=== PATIENT | female | born 1930 | race Caucasian/White ===

== ENCOUNTER → 2016-06-01 | Outpatient (REF) | payer MEDICARE, MEDICAID ==
[~2016-06-01] MED LIST: /ADVA50050; /MOM400 OR; /ONDA4TA OR; /ROPI25TA; /ROPI25TA OR; /WARF25TA; /WARF2TA; /WARF4TA; /WARF4TA OR; ACET65TA; ADVAIR; ADVAIR INH; ALBU83IN; ALBU83IN IN; ALLERGY RELIEF OR; AMIT50TA2; AMIT50TA2 OR; BEANTAB2 OR; BISAC5TA OR; CALCCHW12; CALCCHW12 OR; COLA100C2; COLA100C2 OR; CRES20TA; CRES20TA OR; DEPA500T OR; DEXT5INJ2 IV; DEXTPOW57 XX; DIABETA PO; DIPH50CA PO; FLEC50TA2; FLEEENE4 PR; FLEXERIL OR; FURO40TA2; GLIP2.5T20 OR; GLIP2.5T6; GLIP5TAB2; GLUC1VL SC; GLUC4CHW PO; HALO1TA OR; JANUVIA PO; LASI40TA; LISI10TA4 OR; LISI20TA5; LISI5TAB PO; LOPE2CA OR; LOPR50TA; MED FOR RESTLESS LEG; METF500T PO; METO25TA2 OR; METOPROLOL; NASONEX; PRIL20CA; PRIL20CA OR; PROV90AE; SERT50TA2 OR; SING5CHW PO; THERGRAN; THERGRAN OR; TYLE325T5 PO; VICO5TAB; VICO5TAB OR; VITAMIN D50000 UNT; VOLT1GEL EX; WARF2TAB44 PO; [UNRECOGNIZED DRUG - OTHER] IV
[2016-06-01 12:29] LABS: INR 2.19
== END ==
LOC: SKLAB6 07:00
PROVIDERS: ATTEND Family Medicine
DX: Z51.81 Encounter for therapeutic drug level monitoring (principal); Z79.01 Long term (current) use of anticoagulants

== ENCOUNTER → 2016-06-08 | Outpatient (REF) | payer MEDICARE, MEDICAID ==
[2016-06-08 09:08] LABS: INR 2.21
[2016-06-08 09:37] LABS: CALCIUM LEVEL 9.5 MG/DL (8.8-10.2); CREATININE FOR GFR 0.97 MG/DL (0.55-1.02); POTASSIUM SERUM 4.1 MEQ/L (3.5-5.1)
== END ==
LOC: SKLAB6 07:00
PROVIDERS: ATTEND Family Medicine
DX: Z51.81 Encounter for therapeutic drug level monitoring (principal); Z79.01 Long term (current) use of anticoagulants

== ENCOUNTER → 2016-06-15 | Outpatient (REF) | payer MEDICARE, MEDICAID ==
[2016-06-15 08:32] LABS: INR 1.98
== END ==
LOC: SKLAB6 07:00
PROVIDERS: ATTEND Family Medicine
DX: Z51.81 Encounter for therapeutic drug level monitoring (principal); Z79.01 Long term (current) use of anticoagulants

== ENCOUNTER → 2016-06-22 | Outpatient (REF) | payer MEDICARE, MEDICAID ==
[2016-06-22 08:54] LABS: INR 2.37
== END ==
LOC: SKLAB6 07:00
PROVIDERS: ATTEND Family Medicine
DX: Z51.81 Encounter for therapeutic drug level monitoring (principal); Z79.01 Long term (current) use of anticoagulants

== ENCOUNTER → 2016-06-29 | Outpatient (REF) | payer MEDICARE, MEDICAID ==
[2016-06-29 08:44] LABS: INR 2.14
== END ==
LOC: SKLAB6 07:00
PROVIDERS: ATTEND Family Medicine
DX: Z51.81 Encounter for therapeutic drug level monitoring (principal); Z79.01 Long term (current) use of anticoagulants

== ENCOUNTER → 2016-07-06 | Outpatient (REF) | payer MEDICARE, MEDICAID ==
[2016-07-06 08:43] LABS: INR 2.05
[2016-07-06 08:58] LABS: CALCIUM LEVEL 9.2 MG/DL (8.8-10.2); CREATININE FOR GFR 0.95 MG/DL (0.55-1.02); GLOMERULAR FILTRATION RATE 59.4 (>32); POTASSIUM SERUM 4.4 MEQ/L (3.5-5.1)
== END ==
LOC: SKLAB6 07:00
PROVIDERS: ATTEND Family Medicine
DX: Z51.81 Encounter for therapeutic drug level monitoring (principal); Z79.01 Long term (current) use of anticoagulants; I48.91 Unspecified atrial fibrillation; Z79.899 Other long term (current) drug therapy

== ENCOUNTER → 2016-07-13 | Outpatient (REF) | payer MEDICARE, MEDICAID ==
[2016-07-13 09:22] LABS: INR 1.94
== END ==
LOC: SKLAB6 07:00
PROVIDERS: ATTEND Family Medicine
DX: Z51.81 Encounter for therapeutic drug level monitoring (principal); Z79.01 Long term (current) use of anticoagulants

== ENCOUNTER → 2016-07-20 | Outpatient (REF) | payer MEDICARE, MEDICAID ==
[2016-07-20 08:27] LABS: INR 1.8
== END ==
LOC: SKLAB6 07:00
PROVIDERS: ATTEND Family Medicine
DX: Z51.81 Encounter for therapeutic drug level monitoring (principal); Z79.01 Long term (current) use of anticoagulants

== ENCOUNTER → 2016-07-27 | Outpatient (REF) | payer MEDICARE, MEDICAID ==
[2016-07-27 09:29] LABS: INR 3.34
== END ==
LOC: SKLAB6 07:00
PROVIDERS: ATTEND Family Medicine
DX: Z51.81 Encounter for therapeutic drug level monitoring (principal); Z79.01 Long term (current) use of anticoagulants

== ENCOUNTER 2016-08-02 12:18 | Emergency (ER) | payer MEDICARE, MEDICAID ==
[~2016-08-02] VITALS: Ht 165.1 cm; Wt 58.5 kg
[2016-08-02] MEDS ORDERED: WARF4TAB51 OR (12:58)
[2016-08-02] MEDS ORDERED: FURO40TA2 PO (12:58)
[2016-08-02] MEDS ORDERED: METO-346 PO (12:58)
[2016-08-02] MEDS ORDERED: MONT10TA2 (12:58)
[2016-08-02] MEDS ORDERED: PRED5TA PO (12:58)
[2016-08-02] MEDS ORDERED: ESCI20TA PO (12:58)
[2016-08-02] MEDS ORDERED: METF500T PO (12:58)
[2016-08-02] MEDS ORDERED: FAMO1TAB11 PO (12:58)
[2016-08-02 15:34] LABS: RED CELL DISTRIBUTION WIDTH 15.3 % (11.5-14.5); WHITE BLOOD COUNT 10.4 K/mm3 (4.0-10.0)
[2016-08-02 15:40] LABS: INR 2.14
[2016-08-02 15:53] LABS: CALCIUM LEVEL 9.7 MG/DL (8.8-10.2); CREATININE FOR GFR 1.03 MG/DL (0.55-1.02); GLOMERULAR FILTRATION RATE 54.1 (>32); POTASSIUM SERUM 4.2 MEQ/L (3.5-5.1)
--- NOTE | 2016-08-02 16:03 | REP ---
CT HEAD WITHOUT CONTRAST: HISTORY: Trauma. COMPARISON: 12/24/2014 Areas of decreased attentuation are present in the periventricular and subcortical white matter. This represents small vessel ischemic disease. There is no intraparenchymal hemorrhage, mass or midline shift. The ventricular system and cortical sulci are dilated consistent with mild volume loss. There is no extracerebral collection. There is no fracture. Venous lakes are present in the calvarium. The visualized sinuses are clear. IMPRESSION: 1. Small vessel ischemic disease. 2. Mild volume loss. Signed by Gerardo Larson MD 08/02/2016 04:03 P
--- NOTE | 2016-08-02 16:12 | REP ---
CT CERVICAL SPINE WITHOUT CONTRAST: HISTORY: Trauma. COMPARISON: 12/24/2014 There is a nondisplaced fracture of the right posterior C1 ring. This is partially corticated and likely represents an old ununited fracture. There is no acute fracture or subluxation. Disc bulges are present at the C2-3 and C3-4 levels. Disc bulges with associated osteophyte formation are present at the C4-5 through C6-7 levels. There is minimal to mild narrowing of the spinal canal. Uncinate process and or facet hypertrophy are present at the C2-3 through C7-T1 levels. These findings produce minimal to severe narrowing of the neural foramina. The C4-5 through C7-T1 intervertebral discs are decreased in height consistent with disc degeneration. Subchondral cysts are present in the C2, C5 and 7 vertebral bodies. IMPRESSION: 1. There is no acute fracture or subluxation. 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 2. There is cervical spondylosis at the C2-3 through C7-T1 levels. Signed by Gerardo Larson MD 08/02/2016 04:16 P
[2016-08-02 16:40] VITALS: BP 141/81
== END 2016-08-02 16:45 | disposition home or self-care (01) ==
LOC: EDBD 12:18 → M ED 13:27
DX: S01.81XA Laceration without foreign body of other part of head, initial encounter (principal); W19.XXXA Unspecified fall, initial encounter; Y92.129 Unspecified place in nursing home as the place of occurrence of the external cause; Y93.89 Activity, other specified; Y99.8 Other external cause status; E11.9 Type 2 diabetes mellitus without complications; I10 Essential (primary) hypertension; I50.9 Heart failure, unspecified; Z79.899 Other long term (current) drug therapy; Z79.01 Long term (current) use of anticoagulants; Z79.52 Long term (current) use of systemic steroids; Z79.84 Long term (current) use of oral hypoglycemic drugs; Z88.5 Allergy status to narcotic agent; Z88.0 Allergy status to penicillin; Z88.2 Allergy status to sulfonamides; Z91.048 Other nonmedicinal substance allergy status

== ENCOUNTER → 2016-08-03 | Outpatient (REF) | payer MEDICARE, MEDICAID ==
[~2016-08-03] MED LIST changes: +ESCI20TA PO; +FAMO1TAB11 PO; +FURO40TA2 PO; +METO-346 PO; +MONT10TA2; +PRED5TA PO; +WARF4TAB51 OR
[2016-08-03 09:16] LABS: INR 2.13
[2016-08-03 09:35] LABS: ALT/SGPT 18 U/L (12-78); ANION GAP 12 MEQ/L (8-16); BLOOD UREA NITROGEN 31 MG/DL (7-18); CARBON DIOXIDE LEVEL 27 MEQ/L (21-32); CHLORIDE LEVEL 103 MEQ/L (98-107); CREATININE FOR GFR 0.92 MG/DL (0.55-1.02); GLOMERULAR FILTRATION RATE > 60.0 (>32); GLUCOSE, FASTING 162 MG/DL (83-110); POTASSIUM SERUM 4.6 MEQ/L (3.5-5.1); SODIUM LEVEL 142 MEQ/L (136-145)
== END ==
LOC: SKLAB6 07:00
PROVIDERS: ATTEND Family Medicine
DX: Z51.81 Encounter for therapeutic drug level monitoring (principal); Z79.01 Long term (current) use of anticoagulants

== ENCOUNTER → 2016-08-10 | Outpatient (REF) | payer MEDICARE, MEDICAID ==
[2016-08-10 10:01] LABS: INR 2.45
== END ==
LOC: SKLAB6 07:00
PROVIDERS: ATTEND Family Medicine
DX: Z51.81 Encounter for therapeutic drug level monitoring (principal); Z79.01 Long term (current) use of anticoagulants

== ENCOUNTER → 2016-08-17 | Outpatient (REF) | payer MEDICARE, MEDICAID ==
[2016-08-17 09:47] LABS: INR 2.29
== END ==
LOC: SKLAB6 07:00
PROVIDERS: ATTEND Family Medicine
DX: Z51.81 Encounter for therapeutic drug level monitoring (principal); Z79.01 Long term (current) use of anticoagulants

== ENCOUNTER → 2016-08-24 | Outpatient (REF) | payer MEDICARE, MEDICAID ==
[2016-08-24 09:21] LABS: INR 2.59
== END ==
LOC: SKLAB6 07:00
PROVIDERS: ATTEND Family Medicine
DX: Z51.81 Encounter for therapeutic drug level monitoring (principal); Z79.01 Long term (current) use of anticoagulants

== ENCOUNTER → 2016-08-31 | Outpatient (REF) | payer MEDICARE, MEDICAID ==
[2016-08-31 08:35] LABS: INR 2.52
== END ==
LOC: SKLAB6 07:00
PROVIDERS: ATTEND Family Medicine
DX: Z51.81 Encounter for therapeutic drug level monitoring (principal); Z79.01 Long term (current) use of anticoagulants

== ENCOUNTER → 2016-09-07 | Outpatient (REF) | payer MEDICARE, MEDICAID ==
[2016-09-07 08:39] LABS: INR 2.54
[2016-09-07 08:48] LABS: ANION GAP 7 MEQ/L (8-16); BLOOD UREA NITROGEN 29 MG/DL (7-18); CALCIUM LEVEL 9.6 MG/DL (8.8-10.2); CARBON DIOXIDE LEVEL 32 MEQ/L (21-32); CHLORIDE LEVEL 103 MEQ/L (98-107); CHOLESTEROL LEVEL 210 MG/DL (<200); CREATININE FOR GFR 0.87 MG/DL (0.55-1.02); GLOMERULAR FILTRATION RATE > 60.0 (>32); GLUCOSE, FASTING 138 MG/DL (83-110); POTASSIUM SERUM 4.8 MEQ/L (3.5-5.1); SODIUM LEVEL 142 MEQ/L (136-145); TRIGLYCERIDES LEVEL 271 MG/DL (<150)
== END ==
LOC: SKLAB6 07:00
PROVIDERS: ATTEND Family Medicine
DX: Z51.81 Encounter for therapeutic drug level monitoring (principal); Z79.01 Long term (current) use of anticoagulants; Z79.899 Other long term (current) drug therapy

== ENCOUNTER → 2016-09-14 | Outpatient (REF) | payer MEDICARE, MEDICAID ==
[2016-09-14 09:08] LABS: INR 2.55
== END ==
LOC: SKLAB6 07:00
PROVIDERS: ATTEND Family Medicine
DX: Z51.81 Encounter for therapeutic drug level monitoring (principal); Z79.01 Long term (current) use of anticoagulants

== ENCOUNTER → 2016-09-21 | Outpatient (REF) | payer MEDICARE, MEDICAID ==
[~2016-09-21] MED LIST changes: +ACEP650S PR; +ACET160S3 PO; +AKWASOL OU; +ALB2.5NEB INH; +ANUS2.5C2 PR; +BISA10SU4 PR; +COUM2.5T11 PO; +ENEMENE3 PR; +ENSULIQ64 PO; +GLUC1KIT SC; +KEFL500C7 PO; +LOPE2TAB3 PO; +METO12TA PO; +MILKSUS PO; +MIRA33504 PO; -MONT10TA2; +MONT10TA2 PO; +SALI0.653; +SENN8.6C PO; +TYLE325T5 PR; +VITMTA PO
[2016-09-21 08:39] LABS: INR 4.18
== END ==
LOC: SKLAB6 07:00
PROVIDERS: ATTEND Family Medicine
DX: Z51.81 Encounter for therapeutic drug level monitoring (principal); Z79.01 Long term (current) use of anticoagulants

== ENCOUNTER 2016-09-23 08:37 | Inpatient (IN) | payer MEDICARE, MEDICAID ==
[~2016-09-23 08:37] MED LIST changes: -ACEP650S PR; -ACET160S3 PO; -AKWASOL OU; -ALB2.5NEB INH; -ANUS2.5C2 PR; -BISA10SU4 PR; -COUM2.5T11 PO; -DIFL200T PO; -ENEMENE3 PR; -ENSULIQ64 PO; -GLUC1KIT SC; -KEFL500C7 PO; -LOPE2TAB3 PO; -METO12TA PO; -MILKSUS PO; -MIRA33504 PO; -SALI0.653; -SENN8.6C PO; -TYLE325T5 PR; -VITMTA PO
[2016-09-23] MEDS: LEVEMIR (INSULIN DETEMIR) 1 UNITS/0.01ML SC SCH (09:00)
[2016-09-23] MEDS ORDERED: KEFL500C7 PO (09:25)
[2016-09-23] MEDS ORDERED: SENN8.6C PO (09:38)
[2016-09-23] MEDS ORDERED: TYLE325T5 PR (09:38)
[2016-09-23] MEDS ORDERED: COUM2.5T11 PO (09:54)
[2016-09-23] MEDS ORDERED: MIRA33504 PO (10:02)
[2016-09-23] MEDS ORDERED: ENSULIQ64 PO (10:02)
[2016-09-23] MEDS ORDERED: ACET160S3 PO (10:02)
[2016-09-23] MEDS ORDERED: METO12TA PO (10:02)
[2016-09-23 10:06] LABS: BASO % 0.3 % (0.0-1.0); EOS # 0.1 K/mm3 (0.0-0.50); EOS % 1.1 % (0.0-3.0); LARGE UNSTAINED CELL # 0.3 K/mm3 (0.0-0.4); LARGE UNSTAINED CELL % 2.8 % (0.0-4.0); LYMPH # 2.6 K/mm3 (1.5-4.5); LYMPH % 28.7 % (24.0-44.0); MEAN CORPUSCULAR HEMOGLOBIN 30.9 pg (27.0-33.0); MEAN CORPUSCULAR HGB CONC 31.7 g/dl (32.0-36.5); MEAN CORPUSCULAR VOLUME 97.5 fl (80.0-96.0); MONO # 0.6 K/mm3 (0.0-0.8); NEUTROPHILS # 5.7 K/mm3 (1.8-7.7); NEUTROPHILS % 61.2 % (36.0-66.0); PLATELET COUNT, AUTOMATED 297 k/mm3 (150-450); RED CELL DISTRIBUTION WIDTH 15.2 % (11.5-14.5); WHITE BLOOD COUNT 9.2 K/mm3 (4.0-10.0)
[2016-09-23] MEDS ORDERED: MILKSUS PO (10:12)
[2016-09-23] MEDS ORDERED: ANUS2.5C2 PR (10:12)
[2016-09-23] MEDS ORDERED: ALB2.5NEB INH (10:12)
[2016-09-23] MEDS ORDERED: SALI0.653 (10:12)
[2016-09-23] MEDS ORDERED: LOPE2TAB3 PO (10:12)
[2016-09-23] MEDS ORDERED: AKWASOL OU (10:12)
[2016-09-23] MEDS ORDERED: ACEP650S PR (10:12)
[2016-09-23] MEDS ORDERED: GLUC1KIT SC (10:12)
[2016-09-23] MEDS ORDERED: VITMTA PO (10:12)
[2016-09-23] MEDS ORDERED: ENEMENE3 PR (10:15)
[2016-09-23] MEDS ORDERED: BISA10SU4 PR (10:15)
[2016-09-23 10:29] LABS: ALBUMIN 3.1 GM/DL (3.2-5.2); ALBUMIN/GLOBULIN RATIO 0.61 (1.00-1.93); BILIRUBIN,DIRECT 0.1 MG/DL (0.0-0.2); BILIRUBIN,TOTAL 0.5 MG/DL (0.2-1.0); CALCIUM LEVEL 10.2 MG/DL (8.8-10.2); CREATININE FOR GFR 1.57 MG/DL (0.55-1.02); GLOMERULAR FILTRATION RATE 33.3 (>32); TOTAL PROTEIN 8.2 GM/DL (6.4-8.2)
[2016-09-23] MEDS ORDERED: NS 0.45% 1,000 ML IV ONE (11:15)
[2016-09-23] MEDS ORDERED: ACETAMINOPHEN 325 MG SUPP PR ONE (11:15)
[2016-09-23] MEDS ORDERED: DEXTROSE 50% 50 ML SYRINGE IV PRN (12:00)
[2016-09-23] MEDS ORDERED: GLUCAGON FOR INJ 1 MG VIAL (J1610) SC PRN (12:00)
[2016-09-23] MEDS: HumaLOG INSULIN (NovoLOG) PER UNIT SC SCH ×3 (12:00→21:00)
[2016-09-23] MEDS ORDERED: GLUCOSE 4 GM CHEW TABLET PO PRN (12:00)
[2016-09-23] MEDS ORDERED: HumaLOG INSULIN (NovoLOG) PER UNIT SC SCH ×2 (12:00→21:00)
[2016-09-23] MEDS ORDERED: KCL 20MEQ IN D5W 1000ML 1,000 ML IV SCH (13:00)
--- NOTE | 2016-09-23 15:08 | REP ---
Chest one-view HISTORY: Fever Comparison: 12/25/2014 Linear densities are present in the left lower lobe consistent with scar. The right lung is clear. The cardiac silhouette is enlarged. The pulmonary vasculature is normal in appearance. Impression: 1. Left lower lobe scar. 2. Cardiomegaly. Signed by Gerardo Larson MD 09/23/2016 10:04 A
--- NOTE | 2016-09-23 15:11 | REP ---
GALLBLADDER ULTRASOUND: HISTORY: Right upper quadrant pain. There are no filling defects in the gallbladder. The gallbladder wall measures 1.9 mm. The common bile duct measures 4.1 mm. The liver is normal in echogenicity. The pancreas is not seen due to overlying bowel gas. The right kidney measures 3.7 cm in transverse x 3.9 cm in AP x 10.4 cm in cephalocaudal dimensions. There is no hydronephrosis or mass. IMPRESSION: There is no cholelithiasis. Signed by Gerardo Larson MD 09/23/2016 02:36 P
--- NOTE | 2016-09-23 15:11 | REP ---
CT HEAD WITHOUT CONTRAST: HISTORY: Altered mental status. COMPARISON: 08/02/2016 Areas of decreased attenuation are present in the periventricular and subcortical white matter. This represents small vessel ischemic disease. There is no intraparenchymal hemorrhage, mass, or midline shift. The ventricular system and cortical sulci are dilated, consistent with mild volume loss. There is no extracerebral collection. The visualized sinuses are clear. IMPRESSION: 1. Small vessel ischemic disease. 2. Mild volume loss. Signed by Gerardo Larson MD 09/23/2016 03:02 P
--- NOTE | 2016-09-23 16:33 | HPEPDOC ---
General Date of Admission Sep 23, 2016 at 11:59 Primary Care Physician: Ruben Barber MD Attending Physician: JERARDO NOLAN MD Chief Complaint The patient is a 86-year-old female admitted with a reason for visit of Hypernatremia. Source: Old records Exam Limitations: Other (patient is obtunded) Timing/Duration: 24 hours Severity: Severe Associated Symptoms: Unobtainable History of Present Illness This is an 86-year-old woman from the [facility] with a history of paroxysmal atrial fibrillation, diabetes, congestive heart failure, COPD, insomnia, and GERD who presents to the ER with severe dehydration, altered mental status, and hypernatremia. At the time of admission, the patient is obtunded, snoring loudly, and unresponsive to voice or noxious stimuli. Per nursing report, patient has not been eating or drinking recently. Her most form indicates that she wishes to have comfort measures, however it also notes antibiotics as needed, and transport to the hospital if necessary. Dissection on IV fluids has not been completed. Home Medications Scheduled (Ensure Enlive) 1 Liq Liq, 120 ML PO DAILY, (Reported) Acetaminophen (Acetaminophen) 160 Mg/5 Ml Sandie, 650 MG PO Q4H for PAIN, (Reported ) Cephalexin Monohydrate (Keflex) 500 Mg Cap, 500 MG PO BID, (Reported) FOR 7 DAYS Escitalopram Oxalate (Escitalopram Oxalate) 20 Mg Tab, 20 MG PO DAILY, (Reported ) Famotidine (Famotidine) 20 Mg Tab, 20 MG PO DAILY, (Reported) Furosemide (Furosemide) 40 Mg Tab, 40 MG PO DAILY, (Reported) Metformin Hydrochloride (Metformin HCl) 500 Mg Tab, 500 MG PO DAILY, (Reported) Metoprolol Tartrate (Metoprolol Tartrate) 25 Mg Tab, 25 MG PO QHS, (Reported) Montelukast Sodium (Montelukast Sodium) 10 Mg Tab, 10 MG PO DAILY, (Reported) Multivitamins *[facility] STOCKED* (Thera M Plus *[facility] STOCKED*) 1 Tab Tab, 1 TAB PO DAILY, (Reported) Polyethylene Glycol (Miralax) 1 Pow Pow, 17 GM PO Q2D, (Reported) Prednisone (Prednisone) 5 Mg Tab, 5 MG PO DAILY, (Reported) Senna (Senna) 8.6 Mg Cap, 2 CAP PO BID, (Reported) Warfarin Sod (Warfarin Sodium) 2 Mg Tab, 2 MG OR DAILY, (Reported) TAKES WITH 2.5MG TO EQUAL 4.5MG DAILY Warfarin Sod (Coumadin) 2.5 Mg Tab, 2.5 MG PO QPM, (Reported) TAKES WITH 2MG TO EQUAL 4.5MG DAILY Scheduled PRN (Saline Nasal Mcnabb) 0.65 % Spr, 2 SPRAYS NA Q2H PRN for NASAL DRYNESS, ( Reported) Acetaminophen (Acephen) 650 Mg Sup, 650 MG UT DAILY PRN for FEVER, (Reported) Albuterol Sulfate (Albuterol Sulfate) 2.5 Mg/0.5 Ml Neb, 2.5 MG INH Q4H PRN for SOB/WHEEZING, (Reported) Artificial Tears (Akwa Tears) 1.4 % Sandie, 2 DROP OU QID PRN for DRY EYES, ( Reported) Bisacodyl (Bisacodyl) 10 Mg Sup, 10 MG UT DAILY PRN for CONSTIPATION, (Reported) Glucagon Rdna (Glucagon Emergency Kit) 1 Mg Kit, 1 MG SC for BLOOD SUGAR < 50, ( Reported) Hydrocortisone (Anusol-Hc) 2.5 % Cre, 1 DOSE UT QID PRN for HEMORRHOIDS, ( Reported) Loperamide HCl (Loperamide A-D) 2 Mg Tab, 2 MG PO for DIARRHEA, (Reported) Milk Of Magnesia (Milk of Magnesia) 1,200 Mg/15 Ml Emily, 30 ML PO DAILY PRN for CONSTIPATION, (Reported) Sodium Phosphate/Biphosphate (Enema 7-19 gm/118Ml) 1 Bisi Bisi, 1 BISI UT DAILY PRN for CONSTIPATION, (Reported) Allergies Coded Allergies: Sulfa Drugs (Verified Allergy, Severe, SWELLING, 08/26/12) Codeine (Verified Allergy, Intermediate, HIVES, 08/26/12) CARTER Inhibitors (Verified Allergy, Unknown, unknown, 09/23/16) Penicillins (Verified Allergy, Unknown, 08/26/12) TAPE (Unverified Adverse Reaction, Intermediate, LENZ SKIN, 02/28/09) Morphine (Verified Adverse Reaction, Mild, N/V, 08/26/12) Past Medical History Medical History 1. paroxysmal atrial fibrillation 2. diabetes 3. congestive heart failure 4. COPD 5. insomnia 6. GERD Surgical History 1. Colonoscopy 2007 2. EGD 2007 3.cardioversion 2008 Family History Significant Family History: No pertinent family hx Noncontributory Social History Unable to review with patient. She is current resident of the [facility] Vital Signs Vital Signs Date Time Temp Pulse Resp B/P (MAP) Pulse Ox O2 Delivery O2 Flow Rate FiO2 09/23/16 15:40 98.6 103 20 144/76 (98) 94 Room Air Laboratory Data Labs 24H Laboratory Tests 2 09/23/16 09:58: Osmolality 388H 09/23/16 10:00: White Blood Count 9.2, Red Blood Count 4.64, Hemoglobin 14.3, Hematocrit 45.2, Mean Corpuscular Volume 97.5H, Mean Corpuscular Hemoglobin 30.9, Mean Corpuscular Hemoglobin Concent 31.7L, Red Cell Distribution Width 15.2H, Platelet Count 297, Neutrophils (%) (Auto) 61.2, Lymphocytes (%) (Auto) 28.7, Monocytes (%) (Auto) 6.0H, Eosinophils (%) (Auto) 1.1, Basophils (%) (Auto) 0.3 , Neutrophils # (Auto) 5.7, Lymphocytes # (Auto) 2.6, Monocytes # (Auto) 0.6, Eosinophils # (Auto) 0.1, Basophils # (Auto) 0.0, Large Unclassified Cells % 2.8 , Large Unclassified Cells # 0.3, Anion Gap 3L, Glomerular Filtration Rate 33.3 , Lactic Acid Level 2.5*H, Calcium Level 10.2, Aspartate Amino Transf (AST/SGOT ) 10L, Alanine Aminotransferase (ALT/SGPT) 18, Alkaline Phosphatase 76, Total Bilirubin 0.5, Direct Bilirubin 0.1, Total Protein 8.2, Albumin 3.1L, Albumin/ Globulin Ratio 0.61L 09/23/16 12:14: Urine Appearance HAZY, Urine Color YELLOW, Urine pH 5.0, Urine Specific [place] 1.018, Urine Protein NEGATIVE, Urine Glucose (UA) 3+H, Urine Ketones NEGATIVE, Urine Urobilinogen 0.2, Urine Bilirubin NEGATIVE, Urine Leukocyte Esterase NEGATIVE, Urine Blood NEGATIVE, Urine Nitrite NEGATIVE, Urine WBC (Auto) 2, Urine RBC (Auto) 1, Urine Hyaline Casts (Auto) 4, Urine Bacteria (Auto) NEGATIVE , Urine Squamous Epithelial Cells 7, Urine Mucus (Auto) SMALL, Urine Sperm (Auto ) , Urine Random Osmolality 687 4/29/17 14:36: Lactic Acid Followup at 4 Hours 1.9 09/23/16 16:01: CBC/BMP Laboratory Tests 09/23/16 10:00 Red Blood Count 4.64, Mean Corpuscular Volume 97.5 H, Mean Corpuscular Hemoglobin 30.9, Mean Corpuscular Hemoglobin Concent 31.7 L, Red Cell Distribution Width 15.2 H, Neutrophils (%) (Auto) 61.2, Lymphocytes (%) (Auto) 28.7, Monocytes (%) (Auto) 6.0 H, Eosinophils (%) (Auto) 1.1, Basophils (%) ( Auto) 0.3, Neutrophils # (Auto) 5.7, Lymphocytes # (Auto) 2.6, Monocytes # (Auto ) 0.6, Eosinophils # (Auto) 0.1, Basophils # (Auto) 0.0 Microbiology Microbiology 09/23/16 Blood Culture, Received Pending 09/23/16 Blood Culture, Received Pending 09/23/16 Influenza Virus Type A Antigen - Final, Complete 09/23/16 Influenza Virus Type B Antigen - Final, Complete 09/23/16 Group A Streptococcus Screen (PILLO), Received Pending Problems (1) Altered mental status Problem Text: CT head negative for ischemia or acute hemorrhage. Chest x-ray negative with exception of cardiomegaly, labs pertinent for hypernatremia of 160s. Patient is extremely dry on exam. -Correcting hypernatremia 1-2 points per 4 hours given unknown duration of hypernatremia -Check urine culture and urinalysis -Admit to PCU -Attempting to contact next of kin, as her most form is ambiguous and it is unclear whether she wishes to have REMOTE INPATIENT CODER or if her hypernatremia should be corrected; will continue to correct hypernatremia until a family meeting is held (2) Hypernatremia Status: Acute Problem Text: Acute hypernatremia likely in the setting of absent by mouth intake. Patient is extremely volume depleted on exam, and has mucous dried and caked on the top of her mouth. (3) Hyperglycemia Status: Acute (4) Lactic acidosis Status: Acute Problem Text: Likely secondary to dehydration and absent by mouth intake. -Every 4 lactates until normalized -D5W at 100 mL per hour; will titrate for reduction in serum sodium by 1-2 points every 4 hours (5) Dementia Problem Text: History of dementia and sundowning. Patient is currently obtunded. Corneal reflexes are present, however patient does not respond to voice or noxious stimuli. (6) Paroxysmal atrial fibrillation Problem Text: History of paroxysmal atrial fibrillation. Rate is currently in the 110s. (7) Chronic anticoagulation Problem Text: Patient on chronic anticoagulation with Coumadin. -Daily INRs (8) Diabetes Problem Text: Formerly on metformin. Will hold this currently. She is also hyperglycemic to the 400s. Possible stress response - Levemir 6 units daily with sliding scale insulin (9) COPD (chronic obstructive pulmonary disease) Problem Text: Currently on room air (10) Anemia of chronic disease Problem Text: Hemoglobin is currently normal, however may be hemoconcentrated (11) Insomnia Problem Text: History of insomnia. Holding patient's home medications. Plan / VTE VTE Prophylaxis Ordered?: Yes (Coumadin) Plan Disposition PCU admission for profound altered mental state and severe hypernatremia JERARDO NOLAN MD Sep 23, 2016 16:33
[2016-09-23 16:39] LABS: CALCIUM LEVEL 8.9 MG/DL (8.8-10.2); CREATININE FOR GFR 1.37 MG/DL (0.55-1.02); GLOMERULAR FILTRATION RATE 38.9 (>32); POTASSIUM SERUM 3.9 MEQ/L (3.5-5.1)
[2016-09-23] MEDS ORDERED: POLYVINYL ALCOHOL OPHTH SOLN 15 ML(LIQUITEARS) OU PRN (17:00)
[2016-09-23] MEDS ORDERED: ACETAMINOPHEN 650 MG SUPP PR PRN (17:00)
[2016-09-23] MEDS ORDERED: BISACODYL 10 MG SUPP PR PRN (17:00)
[2016-09-23] MEDS ORDERED: ALBUTEROL SULFATE 2.5 MG/0.5 ML INH NEB SOLN INH PRN (17:00)
[2016-09-23 17:02] VITALS: BP 110/73
[2016-09-23] MEDS: HEPARIN SOD (PORCINE) 5000 UNITS/ML VIAL SC SCH ×2 (17:47→22:32)
--- NOTE | 2016-09-23 17:55 | ECGEPIP ---
Stationary ECG Study [facility] Test Date: 2016-09-23 Pat Name: AARON SANDOVAL Department: Room: - Gender: F [employer] Therapist: PB : 1930 Requested By: VIMAL Walters Order Number: [id number] Reading MD: Obie Hinson Measurements Intervals [place] Rate: 112 P: MS: 0 QRS: -14 QRSD: 90 T: -15 QT: 325 QTc: 446 Interpretive Statements Atrial fibrillation with moderate ventricular response Low QRS complex voltage in the limb leads Inferior wall NE, age indeterminate Anteroseptal NE, age indeterminate Compared to prior tracing of 06/10/2013, ventricular response is faster Electronically Signed On 09-23-2016 17:55:27 EDT by Obie Hinson
[2016-09-23 21:21] VITALS: BP 131/80
[2016-09-23 22:40] LABS: CREATININE FOR GFR 1.28 MG/DL (0.55-1.02); GLOMERULAR FILTRATION RATE 42.1 (>32); POTASSIUM SERUM 3.5 MEQ/L (3.5-5.1)
[2016-09-24] MEDS: D5W/0.45% SODIUM CHLORIDE 1,000 ML IV SCH ×3 (00:19→15:47)
[2016-09-24 00:46] VITALS: BP 119/72
[2016-09-24 04:32] LABS: BASO % 0.4 % (0.0-1.0); EOS # 0.2 K/mm3 (0.0-0.50); EOS % 2.5 % (0.0-3.0); LARGE UNSTAINED CELL # 0.2 K/mm3 (0.0-0.4); LARGE UNSTAINED CELL % 1.9 % (0.0-4.0); LYMPH # 2.4 K/mm3 (1.5-4.5); LYMPH % 25.6 % (24.0-44.0); MEAN CORPUSCULAR HEMOGLOBIN 29.7 pg (27.0-33.0); MEAN CORPUSCULAR HGB CONC 30.5 g/dl (32.0-36.5); MEAN CORPUSCULAR VOLUME 97.5 fl (80.0-96.0); MONO # 0.4 K/mm3 (0.0-0.8); MONO % 4.4 % (0.0-5.0); NEUTROPHILS # 5.8 K/mm3 (1.8-7.7); NEUTROPHILS % 65.1 % (36.0-66.0); PLATELET COUNT, AUTOMATED 268 k/mm3 (150-450); RED CELL DISTRIBUTION WIDTH 15.2 % (11.5-14.5); WHITE BLOOD COUNT 8.8 K/mm3 (4.0-10.0)
[2016-09-24 04:45] VITALS: BP 130/81
[2016-09-24 04:50] LABS: CALCIUM LEVEL 8.5 MG/DL (8.8-10.2); CREATININE FOR GFR 1.19 MG/DL (0.55-1.02); GLOMERULAR FILTRATION RATE 45.8 (>32); POTASSIUM SERUM 3.8 MEQ/L (3.5-5.1)
[2016-09-24 04:51] LABS: INR 1.63
[2016-09-24] MEDS: HEPARIN SOD (PORCINE) 5000 UNITS/ML VIAL SC SCH ×3 (07:44→21:09)
[2016-09-24 08:00] VITALS: BP 101/57
[2016-09-24] MEDS: HumaLOG INSULIN (NovoLOG) PER UNIT SC SCH ×4 (08:17→21:00)
[2016-09-24] MEDS: LEVEMIR (INSULIN DETEMIR) 1 UNITS/0.01ML SC SCH ×2 (08:17→21:08)
[2016-09-24 09:17] LABS: CALCIUM LEVEL 8.5 MG/DL (8.8-10.2); CREATININE FOR GFR 1.37 MG/DL (0.55-1.02); GLOMERULAR FILTRATION RATE 38.9 (>32); POTASSIUM SERUM 4.4 MEQ/L (3.5-5.1)
--- NOTE | 2016-09-24 09:32 | IPNPDOC ---
Subjective Date Seen The patient was seen on 09/24/16. Subjective Chief Complaint/HPI The patient is a 86-year-old female admitted with a reason for visit of Hypernatremia. Events since last encounter Patient continues to be significantly altered, however response to noxious stimuli at this point. Nursing has been unable to get a hold of her next of kin. Per [facility], she is MOBILE HOME SET UP PERSON, however ambiguities were noted regarding fluid resuscitation. General: Reports: ROS Unobtainable Objective Physical Examination General Exam: Positive: No Acute Distress, Negative: Alert Eye Exam: Positive: Conjunctiva & lids normal ENT Exam: Positive: Mucous membr. moist/pink Neck Exam: Positive: Supple, Negative: JVD, thyromegaly Chest Exam: Positive: Clear to auscultation, Normal air movement, Negative: Rales, Rhonchi, Wheezing Heart Exam: Positive: Rate Normal, Normal S1, Normal S2, Negative: Murmurs Abdomen Exam: Positive: Normal bowel sounds, Soft, Negative: Tenderness, Hepatospenomegaly Extremity Exam: Positive: Normal pulses, Negative: Clubbing, Cyanosis, Edema Skin Exam: Positive: Nl turgor and temperature, Negative: Rash, Breakdown Psych Exam: Negative: Mental status NL, Oriented x 3 (obtunded) Assessment /Plan Problems (1) Altered mental status Problem Text: CT head negative for ischemia or acute hemorrhage. Sodium 160 on admission. Chest x-ray negative with exception of cardiomegaly. Patient is extremely dry on exam. UA negative for infection. -Correcting hypernatremia 1-2 points per 4 hours given unknown duration of hypernatremia -Attempting to contact next of kin, as her most form is ambiguous and it is unclear whether she wishes to have MOBILE HOME SET UP PERSON or if her hypernatremia should be corrected; will continue to correct hypernatremia until a family meeting is held -Transfer to the floor for comfort care per MOLST; continue to attempt contact of next of kin, as patient continues to be significantly altered and unresponsive -Continue D5 W4 hypernatremia until next of kin can be contacted -Consider ethics consult for MOLST if next of kin cannot be located. MOLST indicates MOBILE HOME SET UP PERSON, however does not specify fluids, and indicates antibiotic should be used when necessary and transported the hospital when necessary. These are contrary to comfort only measures. (2) Hypernatremia Status: Acute Problem Text: Acute hypernatremia likely in the setting of absent by mouth intake. Patient is extremely volume depleted on exam, and has mucous dried and caked on the top of her mouth. (3) Hyperglycemia Status: Acute (4) Lactic acidosis Status: Resolved Problem Text: Likely secondary to dehydration and absent by mouth intake. -Every 4 lactates until normalized -D5W at 100 mL per hour; will titrate for reduction in serum sodium by 1-2 points every 4 hours (5) Dementia Problem Text: History of dementia and sundowning. Patient is currently obtunded. Corneal reflexes are present, and patient responds to noxious stimuli. However, not opening her eyes, not following commands. (6) Paroxysmal atrial fibrillation Problem Text: History of paroxysmal atrial fibrillation. Rate is currently in the 110s. (7) Chronic anticoagulation Problem Text: Patient on chronic anticoagulation with Coumadin. Normally gets 4.5 mg daily. -Daily INRs - INR 1.6; 5 mg dose once (8) Diabetes Problem Text: Formerly on metformin. Will hold this currently. She is also hyperglycemic to the 400s. Possible stress response and is on D5W for nothing by mouth status and hypernatremia. She required 14 units of corrective insulin yesterday, and 18 units today - Levemir 20 units -Sliding-scale insulin (9) COPD (chronic obstructive pulmonary disease) Problem Text: Previously on room air, now on 2 L. -Chest x-ray -BNP (10) Anemia of chronic disease Problem Text: Hemoglobin is currently normal, however may be hemoconcentrated (11) Insomnia Problem Text: History of insomnia. Holding patient's home medications. (12) Oropharyngeal candidiasis Status: Acute Problem Text: Pt not taking PO and too altered to do Swish and swallow. - fluconazole 200 mg IV x 7 days; transition to swish and swallow when able Plan/VTE VTE Prophylaxis Ordered?: Yes (Coumadin) Disposition Consider transition to hospice pending attempt to get in touch with next of kin VS, I&O, 24H, Fishbone Vital Signs/I&O Vital Signs Date Time Temp Pulse Resp B/P (MAP) Pulse Ox O2 Delivery O2 Flow Rate FiO2 09/24/16 08:00 96.0 97 18 101/57 (72) 97 Nasal Cannula 2.0 I&O- Last 24 Hours up to 6 AM 09/24/16 05:59 Intake Total 2600 ml Balance 2600 ml Laboratory Data 24H LABS Laboratory Tests 2 09/23/16 09:58: Osmolality 388H 09/23/16 10:00: White Blood Count 9.2, Red Blood Count 4.64, Hemoglobin 14.3, Hematocrit 45.2, Mean Corpuscular Volume 97.5H, Mean Corpuscular Hemoglobin 30.9, Mean Corpuscular Hemoglobin Concent 31.7L, Red Cell Distribution Width 15.2H, Platelet Count 297, Neutrophils (%) (Auto) 61.2, Lymphocytes (%) (Auto) 28.7, Monocytes (%) (Auto) 6.0H, Eosinophils (%) (Auto) 1.1, Basophils (%) (Auto) 0.3 , Neutrophils # (Auto) 5.7, Lymphocytes # (Auto) 2.6, Monocytes # (Auto) 0.6, Eosinophils # (Auto) 0.1, Basophils # (Auto) 0.0, Large Unclassified Cells % 2.8 , Large Unclassified Cells # 0.3, Anion Gap 3L, Glomerular Filtration Rate 33.3 , Lactic Acid Level 2.5*H, Calcium Level 10.2, Aspartate Amino Transf (AST/SGOT ) 10L, Alanine Aminotransferase (ALT/SGPT) 18, Alkaline Phosphatase 76, Total Bilirubin 0.5, Direct Bilirubin 0.1, Total Protein 8.2, Albumin 3.1L, Albumin/ Globulin Ratio 0.61L 09/23/16 12:14: Urine Appearance HAZY, Urine Color YELLOW, Urine pH 5.0, Urine Specific [place] 1.018, Urine Protein NEGATIVE, Urine Glucose (UA) 3+H, Urine Ketones NEGATIVE, Urine Urobilinogen 0.2, Urine Bilirubin NEGATIVE, Urine Leukocyte Esterase NEGATIVE, Urine Blood NEGATIVE, Urine Nitrite NEGATIVE, Urine WBC (Auto) 2, Urine RBC (Auto) 1, Urine Hyaline Casts (Auto) 4, Urine Bacteria (Auto) NEGATIVE , Urine Squamous Epithelial Cells 7, Urine Mucus (Auto) SMALL, Urine Sperm (Auto ) , Urine Random Osmolality 687 09/23/16 14:36: Lactic Acid Followup at 4 Hours 1.9 09/23/16 16:01: Anion Gap 7L, Glomerular Filtration Rate 38.9, Blood Urea Nitrogen 62H, Creatinine 1.37H, Sodium Level 158H, Potassium Level 3.9, Chloride Level 121H, Carbon Dioxide Level 30, Calcium Level 8.9 09/23/16 17:37: Bedside Glucose (Misc Panel) 452H 09/23/16 21:56: Anion Gap 8, Glomerular Filtration Rate 42.1, Blood Urea Nitrogen 55H, Creatinine 1.28H, Sodium Level 157H, Potassium Level 3.5, Chloride Level 123H, Carbon Dioxide Level 26, Calcium Level 9.0 09/23/16 22:26: Bedside Glucose (Misc Panel) 203H 09/24/16 04:07: White Blood Count 8.8, Red Blood Count 4.27, Hemoglobin 12.7, Hematocrit 41.6, Mean Corpuscular Volume 97.5H, Mean Corpuscular Hemoglobin 29.7, Mean Corpuscular Hemoglobin Concent 30.5L, Red Cell Distribution Width 15.2H, Platelet Count 268, Neutrophils (%) (Auto) 65.1, Lymphocytes (%) (Auto) 25.6, Monocytes (%) (Auto) 4.4, Eosinophils (%) (Auto) 2.5, Basophils (%) (Auto) 0.4, Neutrophils # (Auto) 5.8, Lymphocytes # (Auto) 2.4, Monocytes # (Auto) 0.4, Eosinophils # (Auto) 0.2, Basophils # (Auto) 0.0, Large Unclassified Cells % 1.9 , Large Unclassified Cells # 0.2, Prothrombin Time 19.4H, Prothromb Time International Ratio 1.63, Anion Gap 7L, Glomerular Filtration Rate 45.8, Blood Urea Nitrogen 47H, Creatinine 1.19H, Sodium Level 155H, Potassium Level 3.8, Chloride Level 119H, Carbon Dioxide Level 29, Calcium Level 8.5L 09/24/16 08:31: CBC/BMP Laboratory Tests 09/23/16 10:00 Red Blood Count 4.64, Mean Corpuscular Volume 97.5 H, Mean Corpuscular Hemoglobin 30.9, Mean Corpuscular Hemoglobin Concent 31.7 L, Red Cell Distribution Width 15.2 H, Neutrophils (%) (Auto) 61.2, Lymphocytes (%) (Auto) 28.7, Monocytes (%) (Auto) 6.0 H, Eosinophils (%) (Auto) 1.1, Basophils (%) ( Auto) 0.3, Neutrophils # (Auto) 5.7, Lymphocytes # (Auto) 2.6, Monocytes # (Auto ) 0.6, Eosinophils # (Auto) 0.1, Basophils # (Auto) 0.0 09/23/16 16:01 Calcium Level 8.9 09/23/16 21:56 Calcium Level 9.0 09/24/16 04:07 Red Blood Count 4.27, Mean Corpuscular Volume 97.5 H, Mean Corpuscular Hemoglobin 29.7, Mean Corpuscular Hemoglobin Concent 30.5 L, Red Cell Distribution Width 15.2 H, Neutrophils (%) (Auto) 65.1, Lymphocytes (%) (Auto) 25.6, Monocytes (%) (Auto) 4.4, Eosinophils (%) (Auto) 2.5, Basophils (%) (Auto ) 0.4, Neutrophils # (Auto) 5.8, Lymphocytes # (Auto) 2.4, Monocytes # (Auto) 0.4, Eosinophils # (Auto) 0.2, Basophils # (Auto) 0.0, Calcium Level 8.5 L Microbiology Microbiology 09/23/16 Blood Culture, Received Pending 09/23/16 Blood Culture, Received Pending 09/23/16 Influenza Virus Type A Antigen - Final, Complete 09/23/16 Influenza Virus Type B Antigen - Final, Complete 09/23/16 Group A Streptococcus Screen (PILLO) - Final, Complete Yeast Like Organism JERARDO NOLAN MD Sep 24, 2016 09:32
[2016-09-24 12:00] VITALS: BP 92/53
[2016-09-24] MEDS: FLUCONAZOLE 200 MG in APPROPRIATE DILUENT 1 EA IV SCH (12:21)
--- NOTE | 2016-09-24 14:24 | REP ---
Chest one-view HISTORY: Hypoxia Comparison: 09/23/2016 Linear density is present in the left lower lobe consistent with scar. The right lung is clear. The cardiac silhouette is enlarged. The pulmonary vasculature is normal in appearance. Impression: 1. Left lower lobe scar. 2. Cardiomegaly. Signed by Gerardo Larson MD 09/24/2016 02:16 P
[2016-09-24 14:51] LABS: CALCIUM LEVEL 8.3 MG/DL (8.8-10.2); CREATININE FOR GFR 1.1 MG/DL (0.55-1.02); GLOMERULAR FILTRATION RATE 50.1 (>32); POTASSIUM SERUM 3.1 MEQ/L (3.5-5.1)
[2016-09-24] MEDS: KCL 20MEQ IN D5W 1000ML 1,000 ML IV SCH ×2 (16:45→23:04)
[2016-09-24 17:02] VITALS: BP 124/72
[2016-09-24 18:16] LABS: ANION GAP 6 MEQ/L (8-16); BLOOD UREA NITROGEN 33 MG/DL (7-18); CALCIUM LEVEL 8.1 MG/DL (8.8-10.2); CARBON DIOXIDE LEVEL 29 MEQ/L (21-32); CHLORIDE LEVEL 122 MEQ/L (98-107); CREATININE FOR GFR 0.93 MG/DL (0.55-1.02); GLOMERULAR FILTRATION RATE > 60.0 (>32); GLUCOSE, FASTING 137 MG/DL (83-110); POTASSIUM SERUM 3.4 MEQ/L (3.5-5.1); SODIUM LEVEL 157 MEQ/L (136-145)
[2016-09-24 22:00] VITALS: BP 121/74
[2016-09-24 22:34] LABS: CREATININE FOR GFR 0.96 MG/DL (0.55-1.02); GLOMERULAR FILTRATION RATE 58.7 (>32); POTASSIUM SERUM 3.6 MEQ/L (3.5-5.1)
[2016-09-25 02:27] LABS: CALCIUM LEVEL 8.5 MG/DL (8.8-10.2); CREATININE FOR GFR 1.01 MG/DL (0.55-1.02); GLOMERULAR FILTRATION RATE 55.3 (>32); POTASSIUM SERUM 3.9 MEQ/L (3.5-5.1)
[2016-09-25] MEDS: HEPARIN SOD (PORCINE) 5000 UNITS/ML VIAL SC SCH ×3 (05:25→21:02)
[2016-09-25 06:00] VITALS: BP 118/71
[2016-09-25 06:53] LABS: BASO % 0.3 % (0.0-1.0); EOS # 0.2 K/mm3 (0.0-0.50); EOS % 2.6 % (0.0-3.0); LARGE UNSTAINED CELL # 0.2 K/mm3 (0.0-0.4); LARGE UNSTAINED CELL % 2.7 % (0.0-4.0); LYMPH # 2.4 K/mm3 (1.5-4.5); LYMPH % 26.7 % (24.0-44.0); MEAN CORPUSCULAR HEMOGLOBIN 30.2 pg (27.0-33.0); MEAN CORPUSCULAR HGB CONC 31.5 g/dl (32.0-36.5); MEAN CORPUSCULAR VOLUME 95.9 fl (80.0-96.0); MONO # 0.4 K/mm3 (0.0-0.8); MONO % 3.8 % (0.0-5.0); NEUTROPHILS # 5.8 K/mm3 (1.8-7.7); NEUTROPHILS % 63.8 % (36.0-66.0); PLATELET COUNT, AUTOMATED 240 k/mm3 (150-450); RED CELL DISTRIBUTION WIDTH 15.3 % (11.5-14.5)
[2016-09-25 07:03] LABS: INR 1.56
[2016-09-25 07:10] LABS: CALCIUM LEVEL 8.1 MG/DL (8.8-10.2); CREATININE FOR GFR 1.04 MG/DL (0.55-1.02); GLOMERULAR FILTRATION RATE 53.5 (>32)
[2016-09-25] MEDS: KCL 20MEQ IN D5W 1000ML 1,000 ML IV SCH ×3 (07:16→21:01)
[2016-09-25] MEDS: HumaLOG INSULIN (NovoLOG) PER UNIT SC SCH ×3 (09:33→17:28)
[2016-09-25] MEDS: FLUCONAZOLE 200 MG in APPROPRIATE DILUENT 1 EA IV SCH (09:34)
[2016-09-25 10:07] LABS: CALCIUM LEVEL 7.6 MG/DL (8.8-10.2); CREATININE FOR GFR 0.99 MG/DL (0.55-1.02); GLOMERULAR FILTRATION RATE 56.6 (>32); POTASSIUM SERUM 3.9 MEQ/L (3.5-5.1)
--- NOTE | 2016-09-25 11:42 | IPNPDOC ---
Subjective Date Seen The patient was seen on 09/25/16. Subjective Chief Complaint/HPI The patient is a 86-year-old female admitted with a reason for visit of Hypernatremia. Events since last encounter Nursing, PFS made attempts to contact dgt Katia Orozco [phone], this is the number [facility] has to contact. I spoke with Phil from [facility] who states that she doesn't answer most of the time and usually doesn't call back. I also called and LMOM. In notes from 2013 there is reference to a granddgt but no contact information listed and no name. General: Reports: ROS Unobtainable Objective Physical Examination General Exam: Positive: No Acute Distress (appears comfortable), Negative: Alert ENT Exam: Positive: Mucous membr. moist/pink Neck Exam: Positive: Supple, Negative: JVD, thyromegaly Chest Exam: Positive: Clear to auscultation, Normal air movement, Negative: Rales, Rhonchi, Wheezing Heart Exam: Positive: Rate Normal, Normal S1, Normal S2, Negative: Murmurs Abdomen Exam: Positive: Normal bowel sounds, Soft, Negative: Tenderness, Hepatospenomegaly Extremity Exam: Positive: Normal pulses, Negative: Clubbing, Cyanosis, Edema Skin Exam: Positive: Nl turgor and temperature, Negative: Rash, Breakdown Psych Exam: Negative: Mental status NL, Oriented x 3 (obtunded) Assessment /Plan Problems (1) Altered mental status Problem Text: Na trending down, now at 149, from 160 on admission, pt remains obtunded. She remains on D5W with 20 meq KCL at 150 cc/hr. [facility] specifies DNR , PUBLIC RELATIONS MANAGER, DNI, send to hospital, No peg, use antibiotics. PFS assisting to find HCP 09/24 CT head negative for ischemia or acute hemorrhage. Sodium 160 on admission. Chest x-ray negative with exception of cardiomegaly. Patient is extremely dry on exam. UA negative for infection. -Correcting hypernatremia 1-2 points per 4 hours given unknown duration of hypernatremia -Attempting to contact next of kin, as her most form is ambiguous and it is unclear whether she wishes to have PUBLIC RELATIONS MANAGER or if her hypernatremia should be corrected; will continue to correct hypernatremia until a family meeting is held -Transfer to the floor for comfort care per MOLST; continue to attempt contact of next of kin, as patient continues to be significantly altered and unresponsive -Continue D5 W4 hypernatremia until next of kin can be contacted -M[facility] indicates PUBLIC RELATIONS MANAGER, however does not specify fluids, and indicates antibiotic should be used when necessary and transported the hospital when necessary. These are contrary to comfort only measures. (2) Hypernatremia Status: Acute Problem Text: NA improved as above, cont with IVF at this time, will cont to try to reach HCP given once hydration is removed, patient liekly will become dehydrated/hyperNa again ([facility] refuses PEG/but IVF not filled out) Acute hypernatremia likely in the setting of absent by mouth intake. Patient is extremely volume depleted on exam, and has mucous dried and caked on the top of her mouth. baseline Na low 140s 161 at 0700 (3) Hyperglycemia Status: Acute Problem Text: FSBS q6h, pt on D5 W. (4) Lactic acidosis Status: Resolved Problem Text: Likely secondary to dehydration and absent by mouth intake. -Every 4 lactates until normalized -D5W at 100 mL per hour; will titrate for reduction in serum sodium by 1-2 points every 4 hours (5) Dementia Problem Text: History of dementia and sundowning. Patient is currently obtunded. Corneal reflexes are present, and patient responds to noxious stimuli. However, not opening her eyes, not following commands. (6) Paroxysmal atrial fibrillation Problem Text: History of paroxysmal atrial fibrillation. Rate is currently in the 110s. (7) Chronic anticoagulation Problem Text: 09/25 - not taking po at this time, INR subtherapeutic. 09/24 Patient on chronic anticoagulation with Coumadin. Normally gets 4.5 mg daily. -Daily INRs - INR 1.6; 5 mg dose once (8) Diabetes Problem Text: Formerly on metformin. Will hold this currently. She is also hyperglycemic to the 400s. Possible stress response and is on D5W for nothing by mouth status and hypernatremia. She required 14 units of corrective insulin yesterday, and 18 units today - Levemir 20 units -Sliding-scale insulin (9) COPD (chronic obstructive pulmonary disease) Problem Text: Previously on room air, now on 2 L. -Chest x-ray -BNP (10) Anemia of chronic disease Problem Text: Hemoglobin is currently normal, however may be hemoconcentrated (11) Insomnia Problem Text: History of insomnia. Holding patient's home medications. (12) Oropharyngeal candidiasis Status: Acute Problem Text: Pt not taking PO and too altered to do Swish and swallow. - fluconazole 200 mg IV x 7 days; transition to swish and swallow when able Plan/VTE VTE Prophylaxis Ordered?: Yes (Coumadin) VS, I&O, 24H, Fishbone Vital Signs/I&O Vital Signs Date Time Temp Pulse Resp B/P (MAP) Pulse Ox O2 Delivery O2 Flow Rate FiO2 09/25/16 10:49 Room Air 09/25/16 06:00 97.7 86 19 118/71 (87) 97 09/24/16 17:02 2.0 I&O- Last 24 Hours up to 6 AM 09/25/16 06:00 Intake Total 0 ml Output Total 0 ml Balance 0 ml Laboratory Data 24H LABS Laboratory Tests 2 09/24/16 11:35: Bedside Glucose (Misc Panel) 233H 09/24/16 13:45: Anion Gap 6L, Glomerular Filtration Rate 50.1, Blood Urea Nitrogen 39H, Creatinine 1.10H, Sodium Level 160H, Potassium Level 3.1#L, Chloride Level 122H , Carbon Dioxide Level 32, Calcium Level 8.3L 09/24/16 16:48: Bedside Glucose (Misc Panel) 110 09/24/16 17:39: Anion Gap 6L, Glomerular Filtration Rate > 60.0, Blood Urea Nitrogen 33H, Creatinine 0.93, Sodium Level 157H, Potassium Level 3.4L, Chloride Level 122H, Carbon Dioxide Level 29, Calcium Level 8.1L 09/24/16 20:15: Bedside Glucose (Misc Panel) 210H 09/24/16 21:41: Anion Gap 7L, Glomerular Filtration Rate 58.7, Blood Urea Nitrogen 30H, Creatinine 0.96, Sodium Level 153H, Potassium Level 3.6, Chloride Level 120H, Carbon Dioxide Level 26, Calcium Level 8.0L 09/25/16 01:50: Anion Gap 7L, Glomerular Filtration Rate 55.3, Blood Urea Nitrogen 27H, Creatinine 1.01, Sodium Level 152H, Potassium Level 3.9, Chloride Level 119H, Carbon Dioxide Level 26, Calcium Level 8.5L 09/25/16 06:42: Anion Gap 7L, Glomerular Filtration Rate 53.5, Blood Urea Nitrogen 23H, Creatinine 1.04H, Sodium Level 150H, Potassium Level 4.0, Chloride Level 116H, Carbon Dioxide Level 27, Calcium Level 8.1L, White Blood Count 9.0, Red Blood Count 3.97L, Hemoglobin 12.0, Hematocrit 38.1, Mean Corpuscular Volume 95.9, Mean Corpuscular Hemoglobin 30.2, Mean Corpuscular Hemoglobin Concent 31.5L, Red Cell Distribution Width 15.3H, Platelet Count 240, Neutrophils (%) (Auto) 63.8, Lymphocytes (%) (Auto) 26.7, Monocytes (%) (Auto) 3.8, Eosinophils (%) ( Auto) 2.6, Basophils (%) (Auto) 0.3, Neutrophils # (Auto) 5.8, Lymphocytes # ( Auto) 2.4, Monocytes # (Auto) 0.4, Eosinophils # (Auto) 0.2, Basophils # (Auto) 0.0, Large Unclassified Cells % 2.7, Large Unclassified Cells # 0.2, Prothrombin Time 18.8H, Prothromb Time International Ratio 1.56, B-Type Natriuretic Peptide 264H 09/25/16 09:21: Anion Gap 6L, Glomerular Filtration Rate 56.6, Blood Urea Nitrogen 23H, Creatinine 0.99, Sodium Level 149H, Potassium Level 3.9, Chloride Level 116H, Carbon Dioxide Level 27, Calcium Level 7.6L CBC/BMP Laboratory Tests 09/24/16 13:45 Calcium Level 8.3 L 09/24/16 17:39 Calcium Level 8.1 L 09/24/16 21:41 Calcium Level 8.0 L 09/25/16 01:50 Calcium Level 8.5 L 09/25/16 06:42 Red Blood Count 3.97 L, Mean Corpuscular Volume 95.9, Mean Corpuscular Hemoglobin 30.2, Mean Corpuscular Hemoglobin Concent 31.5 L, Red Cell Distribution Width 15.3 H, Neutrophils (%) (Auto) 63.8, Lymphocytes (%) (Auto) 26.7, Monocytes (%) (Auto) 3.8, Eosinophils (%) (Auto) 2.6, Basophils (%) (Auto ) 0.3, Neutrophils # (Auto) 5.8, Lymphocytes # (Auto) 2.4, Monocytes # (Auto) 0.4, Eosinophils # (Auto) 0.2, Basophils # (Auto) 0.0, Calcium Level 8.1 L 09/25/16 09:21 Calcium Level 7.6 L Microbiology Microbiology 09/23/16 Blood Culture - Preliminary, Resulted No Growth after 48 hours. All Specime... 09/23/16 Blood Culture - Preliminary, Resulted No Growth after 48 hours. All Specime... 09/23/16 Influenza Virus Type A Antigen - Final, Complete 09/23/16 Influenza Virus Type B Antigen - Final, Complete 09/23/16 Group A Streptococcus Screen (PILLO) - Final, Complete Yeast Like Organism HEATH NOBLE PA-C September 25, 2016 11:41 Anoop Capone M.D. September 25, 2016 14:38
[2016-09-25 13:42] LABS: CALCIUM LEVEL 8.2 MG/DL (8.8-10.2); CREATININE FOR GFR 0.97 MG/DL (0.55-1.02); POTASSIUM SERUM 3.7 MEQ/L (3.5-5.1)
[2016-09-25 14:00] VITALS: BP 159/73
[2016-09-25 18:00] LABS: ANION GAP 6 MEQ/L (8-16); BLOOD UREA NITROGEN 17 MG/DL (7-18); CALCIUM LEVEL 7.9 MG/DL (8.8-10.2); CARBON DIOXIDE LEVEL 26 MEQ/L (21-32); CHLORIDE LEVEL 113 MEQ/L (98-107); CREATININE FOR GFR 0.94 MG/DL (0.55-1.02); GLOMERULAR FILTRATION RATE > 60.0 (>32); GLUCOSE, FASTING 154 MG/DL (83-110); POTASSIUM SERUM 3.9 MEQ/L (3.5-5.1); SODIUM LEVEL 145 MEQ/L (136-145)
[2016-09-25] MEDS: LEVEMIR (INSULIN DETEMIR) 1 UNITS/0.01ML SC SCH (21:03)
[2016-09-25 22:00] VITALS: BP 109/58
[2016-09-26] MEDS: HumaLOG INSULIN (NovoLOG) PER UNIT SC SCH ×5 (00:02→23:53)
[2016-09-26] MEDS: KCL 20MEQ IN D5W 1000ML 1,000 ML IV SCH ×3 (03:28→22:56)
[2016-09-26] MEDS: HEPARIN SOD (PORCINE) 5000 UNITS/ML VIAL SC SCH ×3 (05:49→21:04)
[2016-09-26 06:00] VITALS: BP 134/82
[2016-09-26 06:47] LABS: BASO % 0.1 % (0.0-1.0); EOS # 0.2 K/mm3 (0.0-0.50); EOS % 2.2 % (0.0-3.0); LARGE UNSTAINED CELL # 0.3 K/mm3 (0.0-0.4); LARGE UNSTAINED CELL % 3.4 % (0.0-4.0); LYMPH # 2.1 K/mm3 (1.5-4.5); LYMPH % 26.8 % (24.0-44.0); MEAN CORPUSCULAR HEMOGLOBIN 30.3 pg (27.0-33.0); MEAN CORPUSCULAR HGB CONC 31.4 g/dl (32.0-36.5); MEAN CORPUSCULAR VOLUME 96.5 fl (80.0-96.0); MONO # 0.4 K/mm3 (0.0-0.8); MONO % 4.5 % (0.0-5.0); PLATELET COUNT, AUTOMATED 207 k/mm3 (150-450); RED CELL DISTRIBUTION WIDTH 15.3 % (11.5-14.5); WHITE BLOOD COUNT 7.9 K/mm3 (4.0-10.0)
[2016-09-26 06:53] LABS: INR 1.61
[2016-09-26] MEDS: FLUCONAZOLE 200 MG in APPROPRIATE DILUENT 1 EA IV SCH (09:27)
--- NOTE | 2016-09-26 11:36 | IPNPDOC ---
Subjective Date Seen The patient was seen on 09/26/16. Subjective Chief Complaint/HPI The patient is a 86-year-old female admitted with a reason for visit of Hypernatremia. Events since last encounter Nursing and PFS remain unable to make contact with the pt's dgt Katia Orozco, we all have left messages on her without a return call, [facility] has no other point of contact. General: Reports: ROS Unobtainable Objective Physical Examination General Exam: Positive: No Acute Distress (appears comfortable), Negative: Alert (responses with groaning briefly to sternal rub) ENT Exam: Positive: Mucous membr. moist/pink Neck Exam: Positive: Supple, Negative: JVD, thyromegaly Chest Exam: Positive: Clear to auscultation, Normal air movement, Negative: Rales, Rhonchi, Wheezing Heart Exam: Positive: Rate Normal, Normal S1, Normal S2, Negative: Murmurs Abdomen Exam: Positive: Normal bowel sounds, Soft, Negative: Tenderness, Hepatospenomegaly Extremity Exam: Positive: Normal pulses, Negative: Clubbing, Cyanosis, Edema Skin Exam: Positive: Nl turgor and temperature, Negative: Rash, Breakdown Psych Exam: Negative: Mental status NL, Oriented x 3 (obtunded) Assessment /Plan Problems (1) Altered mental status Problem Text: 09/26 - NA now normalized without improvement in her mental status. Have been unsuccessful in reaching HCP. Dr Capone to speak with Dr Barber, concerning existing [facility] orders -he states has met GD once and s further insight on HCP's wishes. He did state baseline patient was conversant, albeit very basic and took sustaining pureed solid/thin liquids -therefore, will retry diet at these parameters. Decreased IVF from 150 cc/hr to 65 cc / hr. Blood culture x 2 on admission Neg, UA also without suggestion of infection. Flu Neg, no respiratory symptoms, no respiratory screen done. D/w c [place] re possible 2PC to make MANAGER SUPPLIER given we have made valiant attempt (5D) to reach family 09/25 Na trending down, now at 149, from 160 on admission, pt remains obtunded. She remains on D5W with 20 meq KCL at 150 cc/hr. [facility] specifies DNR, MANAGER SUPPLIER, DNI , send to hospital, No peg, use antibiotics. PFS assisting to find HCP 09/24 CT head negative for ischemia or acute hemorrhage. Sodium 160 on admission. Chest x-ray negative with exception of cardiomegaly. Patient is extremely dry on exam. UA negative for infection. -Correcting hypernatremia 1-2 points per 4 hours given unknown duration of hypernatremia -Attempting to contact next of kin, as her most form is ambiguous and it is unclear whether she wishes to have MANAGER SUPPLIER or if her hypernatremia should be corrected; will continue to correct hypernatremia until a family meeting is held -[facility] indicates MANAGER SUPPLIER, however does not specify fluids, and indicates antibiotic should be used when necessary and transported the hospital when necessary. These are contrary to comfort only measures. (2) Hypernatremia Status: Acute Problem Text: 09/26 - As above, NA now normalized. Have reduced the IVF rate from 150 to 65 cc/hr, she remains obtunded and therefore not taking orals. She has NO PEG noted on her [facility]OL[facility]. At this point she has had a trial of IVF without response. 09/25 NA improved as above, cont with IVF at this time, will cont to try to reach HCP given once hydration is removed, patient liekly will become dehydrated /hyperNa again ([facility] refuses PEG/but IVF not filled out) Acute hypernatremia likely in the setting of absent by mouth intake. Patient is extremely volume depleted on exam, and has mucous dried and caked on the top of her mouth. baseline Na low 140s 161 at 0700 (3) Dementia Status: Chronic Problem Text: 09/26 pt had previously been taking po at [facility], in the days prior to her admission her oral intake subsided, and her MS declined resulting in her transfer to [facility] for evaluation. Her MS has failed to improve despite treatment of her hypernatremia without any other identified source of her symptoms. 09/25 - History of dementia and sundowning. Patient is currently obtunded. Corneal reflexes are present, and patient responds to noxious stimuli. However, not opening her eyes, not following commands. (4) Paroxysmal atrial fibrillation Problem Text: History of paroxysmal atrial fibrillation. Rate is currently in the 110s heparin 5K TID 09/26 1.6-plan restart VKA once taking po 09/25 - not taking po at this time, INR subtherapeutic. previously on VKA 4.5 QD (5) Diabetes Problem Text: Stable HBSs mainly 120-140s on Levemir 20 QHS, SSNI (new start this hospitalization) Formerly on metformin. (6) Anemia of chronic disease Problem Text: Hemoglobin is currently normal, however may be hemoconcentrated Plan/VTE VTE Prophylaxis Ordered?: Yes (Coumadin) VS, I&O, 24H, Fishbone Vital Signs/I&O Vital Signs Date Time Temp Pulse Resp B/P (MAP) Pulse Ox O2 Delivery O2 Flow Rate FiO2 09/26/16 09:53 Room Air 09/26/16 06:00 98.8 65 17 134/82 (99) 91 09/24/16 17:02 2.0 I&O- Last 24 Hours up to 6 AM 09/26/16 06:00 Intake Total 1750 ml Output Total 0 ml Balance 1750 ml Laboratory Data 24H LABS Laboratory Tests 2 09/25/16 13:17: Anion Gap 7L, Glomerular Filtration Rate 58.0, Blood Urea Nitrogen 18, Creatinine 0.97, Sodium Level 149H, Potassium Level 3.7, Chloride Level 116H, Carbon Dioxide Level 26, Calcium Level 8.2L 09/25/16 17:04: Bedside Glucose (Misc Panel) 151H 09/25/16 17:24: Anion Gap 6L, Glomerular Filtration Rate > 60.0, Blood Urea Nitrogen 17, Creatinine 0.94, Sodium Level 145, Potassium Level 3.9, Chloride Level 113H, Carbon Dioxide Level 26, Calcium Level 7.9L 09/25/16 23:43: Bedside Glucose (Misc Panel) 181H 09/26/16 02:53: Bedside Glucose (Misc Panel) 140H 09/26/16 05:41: Bedside Glucose (Misc Panel) 127H 09/26/16 06:37: White Blood Count 7.9, Red Blood Count 4.05, Hemoglobin 12.3, Hematocrit 39.1, Mean Corpuscular Volume 96.5H, Mean Corpuscular Hemoglobin 30.3, Mean Corpuscular Hemoglobin Concent 31.4L, Red Cell Distribution Width 15.3H, Platelet Count 207, Neutrophils (%) (Auto) 63.0, Lymphocytes (%) (Auto) 26.8, Monocytes (%) (Auto) 4.5, Eosinophils (%) (Auto) 2.2, Basophils (%) (Auto) 0.1, Neutrophils # (Auto) 5.0, Lymphocytes # (Auto) 2.1, Monocytes # (Auto) 0.4, Eosinophils # (Auto) 0.2, Basophils # (Auto) 0.0, Large Unclassified Cells % 3.4 , Large Unclassified Cells # 0.3 09/26/16 06:38: Prothrombin Time 19.2H, Prothromb Time International Ratio 1.61 CBC/BMP Laboratory Tests 09/25/16 13:17 Calcium Level 8.2 L 09/25/16 17:24 Calcium Level 7.9 L 09/26/16 06:37 Red Blood Count 4.05, Mean Corpuscular Volume 96.5 H, Mean Corpuscular Hemoglobin 30.3, Mean Corpuscular Hemoglobin Concent 31.4 L, Red Cell Distribution Width 15.3 H, Neutrophils (%) (Auto) 63.0, Lymphocytes (%) (Auto) 26.8, Monocytes (%) (Auto) 4.5, Eosinophils (%) (Auto) 2.2, Basophils (%) (Auto ) 0.1, Neutrophils # (Auto) 5.0, Lymphocytes # (Auto) 2.1, Monocytes # (Auto) 0.4, Eosinophils # (Auto) 0.2, Basophils # (Auto) 0.0 Microbiology Microbiology 09/23/16 Blood Culture - Preliminary, Resulted No Growth after 72 hours. All specime... 09/23/16 Blood Culture - Preliminary, Resulted No Growth after 72 hours. All specime... 09/23/16 Influenza Virus Type A Antigen - Final, Complete 09/23/16 Influenza Virus Type B Antigen - Final, Complete 09/23/16 Group A Streptococcus Screen (PILLO) - Final, Complete Yeast Like Organism HEATH NOBLE PA-C September 26, 2016 11:36 Anoop Capone M.D. September 26, 2016 15:17
[2016-09-26 14:00] VITALS: BP 121/58
[2016-09-26] MEDS: LEVEMIR (INSULIN DETEMIR) 1 UNITS/0.01ML SC SCH (21:04)
[2016-09-26 22:00] VITALS: BP 100/60
[2016-09-27 06:00] VITALS: BP 120/62
[2016-09-27] MEDS: HumaLOG INSULIN (NovoLOG) PER UNIT SC SCH (06:00)
[2016-09-27] MEDS: HEPARIN SOD (PORCINE) 5000 UNITS/ML VIAL SC SCH ×3 (06:30→21:01)
[2016-09-27 06:39] LABS: BASO % 0.2 % (0.0-1.0); EOS # 0.1 K/mm3 (0.0-0.50); EOS % 1.6 % (0.0-3.0); LARGE UNSTAINED CELL # 0.3 K/mm3 (0.0-0.4); LYMPH % 28.8 % (24.0-44.0); MEAN CORPUSCULAR HEMOGLOBIN 31.2 pg (27.0-33.0); MEAN CORPUSCULAR VOLUME 94.5 fl (80.0-96.0); MONO # 0.4 K/mm3 (0.0-0.8); MONO % 6.9 % (0.0-5.0); NEUTROPHILS # 3.7 K/mm3 (1.8-7.7); NEUTROPHILS % 58.5 % (36.0-66.0); PLATELET COUNT, AUTOMATED 190 k/mm3 (150-450); RED CELL DISTRIBUTION WIDTH 15.6 % (11.5-14.5); WHITE BLOOD COUNT 6.2 K/mm3 (4.0-10.0)
[2016-09-27 06:44] LABS: INR 1.44
[2016-09-27 07:05] LABS: ALBUMIN 2.4 GM/DL (3.2-5.2); ALBUMIN/GLOBULIN RATIO 0.62 (1.00-1.93); ALKALINE PHOSPHATASE 64 U/L (45-117); ALT/SGPT 29 U/L (12-78); ANION GAP 8 MEQ/L (8-16); AST/SGOT 28 U/L (15-37); BILIRUBIN,TOTAL 0.4 MG/DL (0.2-1.0); BLOOD UREA NITROGEN 10 MG/DL (7-18); CALCIUM LEVEL 8.2 MG/DL (8.8-10.2); CARBON DIOXIDE LEVEL 24 MEQ/L (21-32); CHLORIDE LEVEL 115 MEQ/L (98-107); CREATININE FOR GFR 0.87 MG/DL (0.55-1.02); GLOMERULAR FILTRATION RATE > 60.0 (>32); GLUCOSE, FASTING 93 MG/DL (83-110); POTASSIUM SERUM 3.9 MEQ/L (3.5-5.1); SODIUM LEVEL 147 MEQ/L (136-145); TOTAL PROTEIN 6.3 GM/DL (6.4-8.2)
--- NOTE | 2016-09-27 09:56 | IPNPDOC ---
Subjective Date Seen The patient was seen on 09/27/16. Subjective Chief Complaint/HPI The patient is a 86-year-old female admitted with a reason for visit of Hypernatremia. Events since last encounter Diet advanced yesterday, but 0% consumed per care trend documentation 09/26. Constitutional: Denies: Chills, Fever Pulmonary: Denies: Cough Cardiovascular: Denies: Chest Pain Gastrointestinal: Denies: Nausea, Vomiting, Abdominal Pain, Diarrhea, Constipation Objective Physical Examination General Exam: Positive: Alert (responses with groaning briefly to sternal rub) , No Acute Distress (appears comfortable) ENT Exam: Positive: Mucous membr. moist/pink Neck Exam: Positive: Supple, Negative: JVD, thyromegaly Chest Exam: Positive: Clear to auscultation, Normal air movement, Negative: Rales, Rhonchi, Wheezing Heart Exam: Positive: Rate Normal, Regular Rhythm, Normal S1, Normal S2, Murmurs (Loud Jose at apex) Abdomen Exam: Positive: Normal bowel sounds, Soft, Negative: Tenderness, Hepatospenomegaly Extremity Exam: Positive: Normal pulses, Negative: Clubbing, Cyanosis, Edema Skin Exam: Positive: Nl turgor and temperature, Negative: Rash, Breakdown Psych Exam: Negative: Mental status NL, Oriented x 3 (obtunded) Assessment /Plan Problems (1) Altered mental status Problem Text: 09/27 - Nursing will try to feed her today. If taking some po, would d/c IVF and see if she can sustain herself. Per [facility], she is DNR, DNI, No PEG. She has had a trial of IVF per [facility], but at this point if unable to sustain herself, would likely be reasonable to pursue FAMILY AND CONSUMER SCIENCES PROFESSOR and D/C back to [facility]. PFS till unable to reach HCP. 09/26 - NA now normalized without improvement in her mental status. Have been unsuccessful in reaching HCP. Dr Capone to speak with Dr Barber, concerning existing [facility] orders -he states has met GD once and s further insight on HCP's wishes. He did state baseline patient was conversant, albeit very basic and took sustaining pureed solid/thin liquids -therefore, will retry diet at these parameters. Decreased IVF from 150 cc/hr to 65 cc /hr. Blood culture x 2 on admission Neg, UA also without suggestion of infection. Flu Neg, no respiratory symptoms, no respiratory screen done. D/w c [place] re possible 2PC to make FAMILY AND CONSUMER SCIENCES PROFESSOR given we have made valiant attempt (5D) to reach family 09/25 Na trending down, now at 149, from 160 on admission, pt remains obtunded. She remains on D5W with 20 meq KCL at 150 cc/hr. [facility] specifies DNR, FAMILY AND CONSUMER SCIENCES PROFESSOR, DNI , send to hospital, No peg, use antibiotics. PFS assisting to find HCP 09/24 CT head negative for ischemia or acute hemorrhage. Sodium 160 on admission. Chest x-ray negative with exception of cardiomegaly. Patient is extremely dry on exam. UA negative for infection. -Correcting hypernatremia 1-2 points per 4 hours given unknown duration of hypernatremia -Attempting to contact next of kin, as her most form is ambiguous and it is unclear whether she wishes to have FAMILY AND CONSUMER SCIENCES PROFESSOR or if her hypernatremia should be corrected; will continue to correct hypernatremia until a family meeting is held -[facility] indicates FAMILY AND CONSUMER SCIENCES PROFESSOR, however does not specify fluids, and indicates antibiotic should be used when necessary and transported the hospital when necessary. These are contrary to comfort only measures. (2) Hypernatremia Status: Acute Problem Text: 09/27 - As above. Na+ = 147 today - up slightly on IVF at 65 cc/ hour 09/26 - As above, NA now normalized. Have reduced the IVF rate from 150 to 65 cc/ hr, she remains obtunded and therefore not taking orals. She has NO PEG noted on her [facility]. At this point she has had a trial of IVF without response. 09/25 NA improved as above, cont with IVF at this time, will cont to try to reach HCP given once hydration is removed, patient liekly will become dehydrated /hyperNa again ([facility] refuses PEG/but IVF not filled out) Acute hypernatremia likely in the setting of absent by mouth intake. Patient is extremely volume depleted on exam, and has mucous dried and caked on the top of her mouth. baseline Na low 140s 161 at 0700 (3) Dementia Status: Chronic Problem Text: 09/27 - advanced, end-stage dementia with anorexia 09/26 pt had previously been taking po at [facility], in the days prior to her admission her oral intake subsided, and her MS declined resulting in her transfer to [facility] for evaluation. Her MS has failed to improve despite treatment of her hypernatremia without any other identified source of her symptoms. 09/25 - History of dementia and sundowning. Patient is currently obtunded. Corneal reflexes are present, and patient responds to noxious stimuli. However, not opening her eyes, not following commands. (4) Paroxysmal atrial fibrillation Problem Text: 09/27 History of paroxysmal atrial fibrillation. Rate controlled. Not on anticoag due to decreased alertness and inability to take pos Rate is currently in the 110s heparin 5K TID 09/26 1.6-plan restart VKA once taking po 09/25 - not taking po at this time, INR subtherapeutic. previously on VKA 4.5 QD (5) Diabetes Problem Text: 09/27 - remains on Levamir. D/c all coverage and only check FSBS BID unless starts to take po Stable HBSs mainly 120-140s on Levemir 20 QHS, SSNI (new start this hospitalization) Formerly on metformin. (6) Anemia of chronic disease Problem Text: 09/27 - Hgb remains normal Plan/VTE VTE Prophylaxis Ordered?: Yes (SQ heparin) VS, I&O, 24H, Fishbone Vital Signs/I&O Vital Signs Date Time Temp Pulse Resp B/P (MAP) Pulse Ox O2 Delivery O2 Flow Rate FiO2 09/27/16 06:00 98.1 97 19 120/62 (81) 96 Room Air 09/24/16 17:02 2.0 I&O- Last 24 Hours up to 6 AM 09/27/16 05:59 Intake Total 1565 ml Output Total 0 ml Balance 1565 ml Laboratory Data 24H LABS Laboratory Tests 2 09/26/16 11:44: Bedside Glucose (Misc Panel) 137H 09/26/16 17:09: Bedside Glucose (Misc Panel) 141H 09/26/16 23:38: Bedside Glucose (Misc Panel) 156H 09/27/16 06:08: Prothrombin Time 17.6H, Prothromb Time International Ratio 1.44 09/27/16 06:09: White Blood Count 6.2, Red Blood Count 4.02, Hemoglobin 12.5, Hematocrit 38.0, Mean Corpuscular Volume 94.5, Mean Corpuscular Hemoglobin 31.2, Mean Corpuscular Hemoglobin Concent 33.0, Red Cell Distribution Width 15.6H, Platelet Count 190, Neutrophils (%) (Auto) 58.5, Lymphocytes (%) (Auto) 28.8, Monocytes (%) (Auto) 6.9H, Eosinophils (%) (Auto) 1.6, Basophils (%) (Auto) 0.2 , Neutrophils # (Auto) 3.7, Lymphocytes # (Auto) 2.0, Monocytes # (Auto) 0.4, Eosinophils # (Auto) 0.1, Basophils # (Auto) 0.0, Large Unclassified Cells % 4.0 , Large Unclassified Cells # 0.3, Anion Gap 8, Glomerular Filtration Rate > 60.0 , Blood Urea Nitrogen 10, Creatinine 0.87, Sodium Level 147H, Potassium Level 3.9, Chloride Level 115H, Carbon Dioxide Level 24, Calcium Level 8.2L, Aspartate Amino Transf (AST/SGOT) 28, Alanine Aminotransferase (ALT/SGPT) 29, Alkaline Phosphatase 64, Total Bilirubin 0.4, Total Protein 6.3L, Albumin 2.4L, Albumin/Globulin Ratio 0.62L 09/27/16 06:16: Bedside Glucose (Misc Panel) 98 CBC/BMP Laboratory Tests 09/27/16 06:09 Red Blood Count 4.02, Mean Corpuscular Volume 94.5, Mean Corpuscular Hemoglobin 31.2, Mean Corpuscular Hemoglobin Concent 33.0, Red Cell Distribution Width 15.6 H, Neutrophils (%) (Auto) 58.5, Lymphocytes (%) (Auto) 28.8, Monocytes (%) (Auto) 6.9 H, Eosinophils (%) (Auto) 1.6, Basophils (%) (Auto) 0.2, Neutrophils # (Auto) 3.7, Lymphocytes # (Auto) 2.0, Monocytes # (Auto) 0.4, Eosinophils # ( Auto) 0.1, Basophils # (Auto) 0.0, Calcium Level 8.2 L, Aspartate Amino Transf ( AST/SGOT) 28, Alanine Aminotransferase (ALT/SGPT) 29, Alkaline Phosphatase 64, Total Bilirubin 0.4, Total Protein 6.3 L, Albumin 2.4 L Microbiology Microbiology 09/23/16 Blood Culture - Preliminary, Resulted No Growth after 72 hours. All specime... 09/23/16 Blood Culture - Preliminary, Resulted No Growth after 72 hours. All specime... 09/23/16 Influenza Virus Type A Antigen - Final, Complete 09/23/16 Influenza Virus Type B Antigen - Final, Complete 09/23/16 Group A Streptococcus Screen (PILLO) - Final, Complete Yeast Like Organism ADRIEN DONG PA-C September 27, 2016 09:56
[2016-09-27] MEDS: FLUCONAZOLE 200 MG in APPROPRIATE DILUENT 1 EA IV SCH (09:59)
[2016-09-27 14:00] VITALS: BP 117/63
[2016-09-27 22:00] VITALS: BP 115/71
[2016-09-28] MEDS: HEPARIN SOD (PORCINE) 5000 UNITS/ML VIAL SC SCH (05:22)
[2016-09-28 06:00] VITALS: BP_SYST 108; BP_SYST 138; BP_DIAS 68; BP_DIAS 92
[2016-09-28 06:22] LABS: INR 1.52
[2016-09-28 06:46] LABS: ALBUMIN 2.4 GM/DL (3.2-5.2); ALBUMIN/GLOBULIN RATIO 0.63 (1.00-1.93); ALKALINE PHOSPHATASE 65 U/L (45-117); ALT/SGPT 29 U/L (12-78); ANION GAP 11 MEQ/L (8-16); AST/SGOT 26 U/L (15-37); BILIRUBIN,TOTAL 0.4 MG/DL (0.2-1.0); BLOOD UREA NITROGEN 11 MG/DL (7-18); CALCIUM LEVEL 8.1 MG/DL (8.8-10.2); CARBON DIOXIDE LEVEL 22 MEQ/L (21-32); CHLORIDE LEVEL 111 MEQ/L (98-107); CREATININE FOR GFR 0.83 MG/DL (0.55-1.02); GLOMERULAR FILTRATION RATE > 60.0 (>32); GLUCOSE, FASTING 165 MG/DL (83-110); POTASSIUM SERUM 3.8 MEQ/L (3.5-5.1); SODIUM LEVEL 144 MEQ/L (136-145); TOTAL PROTEIN 6.2 GM/DL (6.4-8.2)
[2016-09-28] MEDS ORDERED: DIFL200T PO (10:26)
[2016-09-28] MEDS: FLUCONAZOLE 200 MG in APPROPRIATE DILUENT 1 EA IV SCH (11:23)
--- NOTE | 2016-09-28 16:28 | DSES ---
DATE OF ADMISSION: 09/23/2016 DATE OF DISCHARGE: 09/28/2016 PRIMARY CARE PROVIDER: Dr. Ruben Barber ATTENDING PHYSICIAN: Dr. Anoop Capone HISTORY: This is an 86-year-old female patient who was admitted to [facility] after being transferred from [facility] with dehydration, altered mental status, found to be hypernatremic in the emergency room. She was obtunded, snoring, unresponsive to voice or noxious stimuli at time of initial evaluation. She has not been eating or drinking well for a couple of days prior to her presentation. Her medical orders for life-sustaining treatment ([facility]) form indicated COMFORT MEASURES ONLY, although antibiotics were to be administered if appropriate and transporting to the hospital, and therefore, she was transferred to the hospital for further evaluation and found to be hypernatremic. Given no percutaneous endoscopic gastrostomy (PEG) tube was completed, however, IV fluids were left blank, the patient was admitted to the hospital for IV fluids for treatment of her hypernatremia. She was placed on the progressive care unit. Multiple attempts by myself, patient and family services, and nursing staff were made to contact the patient's healthcare proxy, Katia Orozco her daughter, have been made. The contact number that we have been provided by [facility] was [phone]. No return calls have been received. During the patient's hospitalization, she has remained medically stable. Her mental status has improved slightly, although she is not taking oral food well. She is certainly more alert than she was when she came in. Her sodium has returned to normal. She is at 144 today and therefore, it is appropriate for her to be transitioned back over to [facility]. She did have negative flu, negative blood cultures times two, and group A Streptococcus screen was suggestive of yeast and therefore, she was started on Diflucan. DISCHARGE DIAGNOSES: Include: 1. Hypernatremia, secondary to dehydration with altered mental status. 2. Dementia. 3. Paroxysmal atrial fibrillation. 4. Anemia of chronic disease. DISCHARGE MEDICATIONS: Include: - Diflucan 200 mg daily - acetaminophen 650 mg by mouth or per rectum every four hours as needed for fever - albuterol sulfate 2.5 mg inhaled as needed for shortness of breath or wheezing - artificial tears two drops every six hours as needed for dry eyes - bisacodyl 10 mg daily as needed for constipation - Ensure daily - hydrocortisone Anusol topically four times a day as needed for hemorrhoids - metoprolol 25 mg before bed - milk of magnesia 30 mL by mouth daily as needed for constipation - Singulair 10 mg by mouth daily - multivitamin one tablet daily - MiraLAX 17 grams every other day - Senna two tablets twice a day - Fleet as needed for constipation - Fleet enema daily as needed for constipation - Coumadin 2 mg alternating with 2.5 mg daily DISCHARGE PLAN: Followup with Dr. Barber. Activity should be as tolerated. Diet should be as tolerated. 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 She has been treated with a trial of IV fluids. Her sodium level has returned to normal, although she is still not eating or drinking well. Further plan of care will be per her primary care provider (PCP), Dr. Ruben Barber.
== END 2016-09-28 12:30 | DRG 641 ==
LOC: M ED 09:19 → M ED INP 11:59 → M PCU 16:36 → M MSPAV 09-24 16:54
PROVIDERS: ADMIT Family Medicine; ATTEND Family Medicine
DX: E87.0 Hyperosmolality and hypernatremia (principal); B37.0 Candidal stomatitis; E87.2 Acidosis; R41.82 Altered mental status, unspecified; F03.90 Unspecified dementia, unspecified severity, without behavioral disturbance, psychotic disturbance, mood disturbance, and anxiety; I48.0 Paroxysmal atrial fibrillation; Z51.5 Encounter for palliative care; Z66 Do not resuscitate; D63.8 Anemia in other chronic diseases classified elsewhere; E11.65 Type 2 diabetes mellitus with hyperglycemia; I50.9 Heart failure, unspecified; J44.9 Chronic obstructive pulmonary disease, unspecified; G47.00 Insomnia, unspecified; K21.9 Gastro-esophageal reflux disease without esophagitis; Z79.84 Long term (current) use of oral hypoglycemic drugs; Z88.2 Allergy status to sulfonamides; Z88.5 Allergy status to narcotic agent; Z88.0 Allergy status to penicillin; Z88.8 Allergy status to other drugs, medicaments and biological substances; Z91.048 Other nonmedicinal substance allergy status; Z79.899 Other long term (current) drug therapy; Z79.01 Long term (current) use of anticoagulants

== ENCOUNTER → 2016-09-23 | Outpatient (REF) | payer MEDICARE, MEDICAID ==
[~2016-09-23] MED LIST changes: +DIFL200T PO
[2016-09-23 07:52] LABS: BASO % 0.3 % (0.0-1.0); EOS # 0.1 K/mm3 (0.0-0.50); EOS % 0.9 % (0.0-3.0); LARGE UNSTAINED CELL # 0.2 K/mm3 (0.0-0.4); LARGE UNSTAINED CELL % 2.4 % (0.0-4.0); LYMPH # 2.8 K/mm3 (1.5-4.5); LYMPH % 30.3 % (24.0-44.0); MEAN CORPUSCULAR HEMOGLOBIN 31.3 pg (27.0-33.0); MEAN CORPUSCULAR VOLUME 97.9 fl (80.0-96.0); MONO # 0.5 K/mm3 (0.0-0.8); MONO % 5.3 % (0.0-5.0); NEUTROPHILS # 5.6 K/mm3 (1.8-7.7); NEUTROPHILS % 60.8 % (36.0-66.0); PLATELET COUNT, AUTOMATED 307 k/mm3 (150-450); RED CELL DISTRIBUTION WIDTH 15.3 % (11.5-14.5); WHITE BLOOD COUNT 9.2 K/mm3 (4.0-10.0)
[2016-09-23 07:57] LABS: CALCIUM LEVEL 9.7 MG/DL (8.8-10.2); CREATININE FOR GFR 1.48 MG/DL (0.55-1.02); GLOMERULAR FILTRATION RATE 35.6 (>32); POTASSIUM SERUM 4.1 MEQ/L (3.5-5.1)
[2016-09-23 07:58] LABS: INR 1.67
== END ==
LOC: SKLAB6 08:00
PROVIDERS: ATTEND Family Medicine
DX: Z51.81 Encounter for therapeutic drug level monitoring (principal); Z79.01 Long term (current) use of anticoagulants

== ENCOUNTER → 2016-10-03 | Outpatient (REF) | payer MEDICARE, MEDICAID ==
[~2016-10-03] MED LIST changes: +ACEP650S PR; +ACET160S3 PO; +AKWASOL OU; +ALB2.5NEB INH; +ANUS2.5C2 PR; +BISA10SU4 PR; +COUM2.5T11 PO; +DIFL200T PO; +ENEMENE3 PR; +ENSULIQ64 PO; +GLUC1KIT SC; +KEFL500C7 PO; +LOPE2TAB3 PO; +METO12TA PO; +MILKSUS PO; +MIRA33504 PO; +SALI0.653; +SENN8.6C PO; +TYLE325T5 PR; +VITMTA PO
[2016-10-03 12:49] LABS: BASO % 0.2 % (0.0-1.0); EOS % 0.3 % (0.0-3.0); LARGE UNSTAINED CELL # 0.1 K/mm3 (0.0-0.4); LARGE UNSTAINED CELL % 1.5 % (0.0-4.0); LYMPH % 22.9 % (24.0-44.0); MEAN CORPUSCULAR HEMOGLOBIN 30.6 pg (27.0-33.0); MEAN CORPUSCULAR HGB CONC 31.7 g/dl (32.0-36.5); MEAN CORPUSCULAR VOLUME 96.5 fl (80.0-96.0); MONO # 0.5 K/mm3 (0.0-0.8); NEUTROPHILS # 5.9 K/mm3 (1.8-7.7); NEUTROPHILS % 69.1 % (36.0-66.0); PLATELET COUNT, AUTOMATED 216 k/mm3 (150-450); RED CELL DISTRIBUTION WIDTH 15.8 % (11.5-14.5); WHITE BLOOD COUNT 8.5 K/mm3 (4.0-10.0)
[2016-10-03 13:01] LABS: CALCIUM LEVEL 8.6 MG/DL (8.8-10.2); CREATININE FOR GFR 0.95 MG/DL (0.55-1.02); GLOMERULAR FILTRATION RATE 59.4 (>32); POTASSIUM SERUM 4.2 MEQ/L (3.5-5.1)
== END ==
LOC: SKLAB6 07:00
PROVIDERS: ATTEND Family Medicine
DX: R09.89 Other specified symptoms and signs involving the circulatory and respiratory systems (principal)

== ENCOUNTER → 2016-10-03 | Outpatient (REF) | payer MEDICARE, MEDICAID ==
[~2016-10-03] MED LIST changes: -COUM2.5T11 PO; +COUM2.5T17 PO; +ENEMENE16 PR; -ENEMENE3 PR; +KEFL500C17 PO; -KEFL500C7 PO; +METF500T13 PO; -METO12TA PO; +METO1TAB87 PO; +SALI0.6523; -SALI0.653
--- NOTE | 2016-10-03 18:41 | REP ---
PORTABLE CHEST: AP portable view of the chest is performed and compared to prior study of 09/24/2016. Once again there is cardiomegaly with scattered chronic interstitial changes. No new infiltrate or pulmonary edema is seen. There is calcification and tortuosity of the thoracic aorta. The mediastinal silhouette is unchanged. IMPRESSION: Cardiomegaly and chronic changes. No acute infiltrate. Signed by Vitaliy Ryan MD 10/04/2016 04:52 P
== END ==
LOC: M RAD 15:00
PROVIDERS: ATTEND Family Medicine
DX: E11.9 Type 2 diabetes mellitus without complications (principal); R09.89 Other specified symptoms and signs involving the circulatory and respiratory systems; I51.7 Cardiomegaly

== ENCOUNTER → 2016-10-05 | Outpatient (REF) | payer MEDICARE, MEDICAID ==
[~2016-10-05] MED LIST changes: +COUM2.5T11 PO; -COUM2.5T17 PO; -ENEMENE16 PR; +ENEMENE3 PR; -KEFL500C17 PO; +KEFL500C7 PO; -METF500T13 PO; +METO12TA PO; -METO1TAB87 PO; -SALI0.6523; +SALI0.653
[2016-10-05 09:39] LABS: ANION GAP 7 MEQ/L (8-16); BLOOD UREA NITROGEN 21 MG/DL (7-18); CALCIUM LEVEL 8.4 MG/DL (8.8-10.2); CARBON DIOXIDE LEVEL 28 MEQ/L (21-32); CHLORIDE LEVEL 108 MEQ/L (98-107); CREATININE FOR GFR 0.77 MG/DL (0.55-1.02); GLOMERULAR FILTRATION RATE > 60.0 (>32); GLUCOSE, FASTING 178 MG/DL (83-110); POTASSIUM SERUM 3.7 MEQ/L (3.5-5.1); SODIUM LEVEL 143 MEQ/L (136-145)
== END ==
LOC: SKLAB6 07:00
PROVIDERS: ATTEND Family Medicine
DX: E11.9 Type 2 diabetes mellitus without complications (principal)

== ENCOUNTER → 2016-10-12 | Outpatient (REF) | payer MEDICARE, MEDICAID ==
[2016-10-12 09:02] LABS: MEAN CORPUSCULAR HEMOGLOBIN 29.7 pg (27.0-33.0); MEAN CORPUSCULAR HGB CONC 31.8 g/dl (32.0-36.5); MEAN CORPUSCULAR VOLUME 93.3 fl (80.0-96.0); RED CELL DISTRIBUTION WIDTH 15.5 % (11.5-14.5); WHITE BLOOD COUNT 14.5 K/mm3 (4.0-10.0)
[2016-10-12 09:21] LABS: ANION GAP 8 MEQ/L (8-16); BLOOD UREA NITROGEN 20 MG/DL (7-18); CALCIUM LEVEL 9.4 MG/DL (8.8-10.2); CARBON DIOXIDE LEVEL 27 MEQ/L (21-32); CHLORIDE LEVEL 103 MEQ/L (98-107); CREATININE FOR GFR 0.89 MG/DL (0.55-1.02); GLOMERULAR FILTRATION RATE > 60.0 (>32); GLUCOSE, FASTING 248 MG/DL (83-110); POTASSIUM SERUM 4.3 MEQ/L (3.5-5.1); SODIUM LEVEL 138 MEQ/L (136-145)
== END ==
LOC: SKLAB6 07:00
PROVIDERS: ATTEND Family Medicine
DX: E11.9 Type 2 diabetes mellitus without complications (principal); Z51.81 Encounter for therapeutic drug level monitoring; Z79.899 Other long term (current) drug therapy

== ENCOUNTER → 2016-10-13 | Outpatient (REF) | payer MEDICARE, MEDICAID | LOC: SKLAB6 17:23 | PROVIDERS: ATTEND Family Medicine | DX: Z51.81 Encounter for therapeutic drug level monitoring (principal); Z79.899 Other long term (current) drug therapy; E11.9 Type 2 diabetes mellitus without complications ==

== ENCOUNTER → 2016-10-15 | Outpatient (REF) | payer MEDICARE, MEDICAID | LOC: SKLAB6 17:36 | PROVIDERS: ATTEND Family Medicine | DX: Z51.81 Encounter for therapeutic drug level monitoring (principal); Z79.899 Other long term (current) drug therapy; E11.9 Type 2 diabetes mellitus without complications ==

== ENCOUNTER → 2016-10-18 | Outpatient (REF) | payer MEDICARE, MEDICAID | LOC: SKLAB6 17:20 | PROVIDERS: ATTEND Family Medicine | DX: R73.09 Other abnormal glucose (principal) ==

== ENCOUNTER → 2016-10-19 | Outpatient (REF) | payer MEDICARE, MEDICAID ==
[2016-10-19 09:40] LABS: ANION GAP 6 MEQ/L (8-16); BLOOD UREA NITROGEN 25 MG/DL (7-18); CALCIUM LEVEL 9.6 MG/DL (8.8-10.2); CARBON DIOXIDE LEVEL 30 MEQ/L (21-32); CHLORIDE LEVEL 108 MEQ/L (98-107); CREATININE FOR GFR 0.89 MG/DL (0.55-1.02); GLOMERULAR FILTRATION RATE > 60.0 (>32); GLUCOSE, FASTING 316 MG/DL (83-110); POTASSIUM SERUM 4.6 MEQ/L (3.5-5.1); SODIUM LEVEL 144 MEQ/L (136-145)
== END ==
LOC: SKLAB6 07:00
PROVIDERS: ATTEND Family Medicine
DX: E11.9 Type 2 diabetes mellitus without complications (principal); Z79.899 Other long term (current) drug therapy

== ENCOUNTER → 2016-10-20 | Outpatient (REF) | payer MEDICARE, MEDICAID | LOC: SKLAB6 18:25 | PROVIDERS: ATTEND Family Medicine | DX: R73.09 Other abnormal glucose (principal) ==

== ENCOUNTER → 2016-10-26 | Outpatient (REF) | payer MEDICARE, MEDICAID | LOC: SKLAB6 07:00 | PROVIDERS: ATTEND Family Medicine | DX: Z51.81 Encounter for therapeutic drug level monitoring (principal); Z79.01 Long term (current) use of anticoagulants ==

== ENCOUNTER → 2016-11-02 | Outpatient (REF) | payer MEDICARE, MEDICAID ==
[2016-11-02 10:33] LABS: ANION GAP 8 MEQ/L (8-16); BLOOD UREA NITROGEN 16 MG/DL (7-18); CALCIUM LEVEL 9.2 MG/DL (8.8-10.2); CARBON DIOXIDE LEVEL 30 MEQ/L (21-32); CHLORIDE LEVEL 102 MEQ/L (98-107); CREATININE FOR GFR 0.79 MG/DL (0.55-1.02); GLOMERULAR FILTRATION RATE > 60.0 (>32); GLUCOSE, FASTING 200 MG/DL (83-110); POTASSIUM SERUM 3.8 MEQ/L (3.5-5.1); SODIUM LEVEL 140 MEQ/L (136-145)
== END ==
LOC: SKLAB6 08:00
PROVIDERS: ATTEND Family Medicine
DX: E11.9 Type 2 diabetes mellitus without complications (principal)

== ENCOUNTER → 2016-11-09 | Outpatient (REF) | payer MEDICARE, MEDICAID ==
[2016-11-09 10:46] LABS: ANION GAP 7 MEQ/L (8-16); BLOOD UREA NITROGEN 16 MG/DL (7-18); CALCIUM LEVEL 9.5 MG/DL (8.8-10.2); CARBON DIOXIDE LEVEL 29 MEQ/L (21-32); CHLORIDE LEVEL 102 MEQ/L (98-107); GLOMERULAR FILTRATION RATE > 60.0 (>32); GLUCOSE, FASTING 278 MG/DL (83-110); POTASSIUM SERUM 4.1 MEQ/L (3.5-5.1); SODIUM LEVEL 138 MEQ/L (136-145)
== END ==
LOC: SKLAB6 09:53
PROVIDERS: ATTEND Family Medicine
DX: I50.9 Heart failure, unspecified (principal)

== ENCOUNTER → 2016-11-16 | Outpatient (REF) | payer MEDICARE, MEDICAID ==
[2016-11-16 11:29] LABS: ANION GAP 10 MEQ/L (8-16); BLOOD UREA NITROGEN 15 MG/DL (7-18); CALCIUM LEVEL 9.3 MG/DL (8.8-10.2); CARBON DIOXIDE LEVEL 27 MEQ/L (21-32); CHLORIDE LEVEL 103 MEQ/L (98-107); CREATININE FOR GFR 0.82 MG/DL (0.55-1.02); GLOMERULAR FILTRATION RATE > 60.0 (>32); GLUCOSE, FASTING 221 MG/DL (83-110); SODIUM LEVEL 140 MEQ/L (136-145)
== END ==
LOC: SKLAB6 07:00
PROVIDERS: ATTEND Family Medicine
DX: E86.0 Dehydration (principal)

== ENCOUNTER → 2016-11-23 | Outpatient (REF) | payer MEDICARE, MEDICAID ==
[~2016-11-23] MED LIST changes: -COUM2.5T11 PO; +COUM2.5T17 PO; +ENEMENE16 PR; -ENEMENE3 PR; +KEFL500C17 PO; -KEFL500C7 PO; +METF500T13 PO; -METO12TA PO; +METO1TAB87 PO; +SALI0.6523; -SALI0.653
[2016-11-23 08:45] LABS: ANION GAP 8 MEQ/L (8-16); BLOOD UREA NITROGEN 16 MG/DL (7-18); CALCIUM LEVEL 9.5 MG/DL (8.8-10.2); CARBON DIOXIDE LEVEL 28 MEQ/L (21-32); CHLORIDE LEVEL 106 MEQ/L (98-107); CREATININE FOR GFR 0.67 MG/DL (0.55-1.02); GLOMERULAR FILTRATION RATE > 60.0 (>32); GLUCOSE, FASTING 122 MG/DL (83-110); POTASSIUM SERUM 4.7 MEQ/L (3.5-5.1); SODIUM LEVEL 142 MEQ/L (136-145)
== END ==
LOC: SKLAB6 08:00
PROVIDERS: ATTEND Family Medicine
DX: E11.9 Type 2 diabetes mellitus without complications (principal)

== ENCOUNTER → 2016-11-30 | Outpatient (REF) | payer MEDICARE, MEDICAID ==
[2016-11-30 09:44] LABS: ANION GAP 6 MEQ/L (8-16); BLOOD UREA NITROGEN 15 MG/DL (7-18); CALCIUM LEVEL 9.8 MG/DL (8.8-10.2); CARBON DIOXIDE LEVEL 29 MEQ/L (21-32); CHLORIDE LEVEL 108 MEQ/L (98-107); CREATININE FOR GFR 0.72 MG/DL (0.55-1.02); GLOMERULAR FILTRATION RATE > 60.0 (>32); GLUCOSE, FASTING 150 MG/DL (83-110); POTASSIUM SERUM 4.1 MEQ/L (3.5-5.1); SODIUM LEVEL 143 MEQ/L (136-145)
== END ==
LOC: SKLAB6 08:00
PROVIDERS: ATTEND Family Medicine
DX: E11.9 Type 2 diabetes mellitus without complications (principal)

== ENCOUNTER → 2016-12-07 | Outpatient (REF) | payer MEDICARE, MEDICAID ==
[2016-12-07 11:20] LABS: ANION GAP 8 MEQ/L (8-16); BLOOD UREA NITROGEN 17 MG/DL (7-18); CALCIUM LEVEL 9.5 MG/DL (8.8-10.2); CARBON DIOXIDE LEVEL 27 MEQ/L (21-32); CHLORIDE LEVEL 106 MEQ/L (98-107); CREATININE FOR GFR 0.71 MG/DL (0.55-1.02); GLOMERULAR FILTRATION RATE > 60.0 (>32); GLUCOSE, FASTING 147 MG/DL (83-110); POTASSIUM SERUM 3.5 MEQ/L (3.5-5.1); SODIUM LEVEL 141 MEQ/L (136-145)
== END ==
LOC: SKLAB6 07:00
PROVIDERS: ATTEND Family Medicine
DX: E11.9 Type 2 diabetes mellitus without complications (principal)

== ENCOUNTER → 2016-12-14 | Outpatient (REF) | payer MEDICARE, MEDICAID ==
[2016-12-14 08:39] LABS: INR 1.22
[2016-12-14 13:55] LABS: ANION GAP 6 MEQ/L (8-16); BLOOD UREA NITROGEN 17 MG/DL (7-18); CALCIUM LEVEL 9.8 MG/DL (8.8-10.2); CARBON DIOXIDE LEVEL 27 MEQ/L (21-32); CHLORIDE LEVEL 109 MEQ/L (98-107); CREATININE FOR GFR 0.82 MG/DL (0.55-1.02); GLOMERULAR FILTRATION RATE > 60.0 (>32); GLUCOSE, FASTING 190 MG/DL (83-110); POTASSIUM SERUM 4.7 MEQ/L (3.5-5.1); SODIUM LEVEL 142 MEQ/L (136-145)
== END ==
LOC: SKLAB6 07:00
PROVIDERS: ATTEND Family Medicine
DX: Z51.81 Encounter for therapeutic drug level monitoring (principal); Z79.01 Long term (current) use of anticoagulants

== ENCOUNTER → 2016-12-21 | Outpatient (REF) | payer MEDICARE, MEDICAID ==
[2016-12-21 08:46] LABS: ANION GAP 7 MEQ/L (8-16); BLOOD UREA NITROGEN 16 MG/DL (7-18); CALCIUM LEVEL 9.7 MG/DL (8.8-10.2); CARBON DIOXIDE LEVEL 28 MEQ/L (21-32); CHLORIDE LEVEL 103 MEQ/L (98-107); CREATININE FOR GFR 0.68 MG/DL (0.55-1.02); GLOMERULAR FILTRATION RATE > 60.0 (>32); GLUCOSE, FASTING 126 MG/DL (83-110); POTASSIUM SERUM 3.7 MEQ/L (3.5-5.1); SODIUM LEVEL 138 MEQ/L (136-145)
== END ==
LOC: SKLAB6 07:00
PROVIDERS: ATTEND Family Medicine
DX: E11.9 Type 2 diabetes mellitus without complications (principal)

== ENCOUNTER → 2016-12-28 | Outpatient (REF) | payer MEDICARE, MEDICAID ==
[2016-12-28 09:07] LABS: ANION GAP 10 MEQ/L (8-16); BLOOD UREA NITROGEN 22 MG/DL (7-18); CALCIUM LEVEL 9.6 MG/DL (8.8-10.2); CARBON DIOXIDE LEVEL 23 MEQ/L (21-32); CHLORIDE LEVEL 111 MEQ/L (98-107); CREATININE FOR GFR 0.81 MG/DL (0.55-1.02); GLOMERULAR FILTRATION RATE > 60.0 (>32); GLUCOSE, FASTING 164 MG/DL (83-110); SODIUM LEVEL 144 MEQ/L (136-145)
== END ==
LOC: SKLAB6 07:00
PROVIDERS: ATTEND Family Medicine
DX: E11.9 Type 2 diabetes mellitus without complications (principal)

== ENCOUNTER → 2016-12-29 | Outpatient (REF) | payer MEDICARE, MEDICAID ==
--- NOTE | 2016-12-29 09:30 | REP ---
Chest supine AP and cross-table lateral views: Comparison is 10/03/2016. No focal infiltrates are identified. Cardiac size appears normal. The mark and mediastinum are unremarkable for positioning. Bony thorax is unremarkable. Impression: There are no acute cardiopulmonary findings. Signed by Vitaliy Strickland MD 12/29/2016 09:21 A
== END ==
LOC: SKLAB6 15:00
PROVIDERS: ATTEND Family Medicine
DX: R50.9 Fever, unspecified (principal)